=== PATIENT | female | born 1990 | race Caucasian/White ===

== ENCOUNTER 2019-03-05 13:32 | Emergency (ER) | payer MEDICAID, SELFPAY ==
[2019-03-05 13:33] VITALS: BP 100/67; PULSE 85; RESP 16; TEMP 36.5; O2SAT 98
[2019-03-05 14:45] LABS: Red Blood Cells-Urine 0 SEEN /hpf (0-5)
[2019-03-05 14:54] LABS: Color, Urine Yellow (Yellow); Glucose, Dipstick Normal (Normal); Ketone-Dipstick 5 mg/dl (Negative); Leukocyte Esterase-Dipstick 25 /ul (Negative); Nitrite-Dipstick Negative (Negative); Occult Blood-Urine Negative /ul (Negative); Protein-Dipstick Negative (Negative); Urine Bilirubin Dipstick Negative (Negative); Urine Clarity Sl. Cloudy (Clear); Urine Urobilinogen 1 mg/dl (Normal); Urine pH 6.5 (5.0 - 8.0)
[2019-03-05 14:58] LABS: Internal QC Validated? YES +Cl - CLEAR BKGD; Pregnancy, Urine Negative Negative
[2019-03-05] MEDS: Acetaminophen 325 MG Tablet 650 MG PO (15:03)
[2019-03-05 15:04] LABS: Bacteria 1+ /hpf (None Seen); Mucous, Urine 2+ /hpf (<or=2+); Squamous Epithelial Cells - UA 0-5 SEEN /hpf (5-10); White Blood Cells 0-5 SEEN /hpf (0-5)
--- NOTE | 2019-03-05 15:14 | US_ITS ---
STUDY: ULTRASOUND TRANSVAGINAL CLINICAL: Female, 28 years old. Pain TECHNIQUE: Transvaginal COMPARISON: None. FINDINGS: Normal uterine size measuring 9.7 x 6.1 x 3.7 cm in maximal craniocaudal dimension. There are no myometrial masses. Normal endometrial thickness measuring 3 mm. Given the images provided findings are suggestive of a probable septate uterus. 2 defined uterine horns are not definitively characterize.. There are no endometrial masses, and there is no fluid in the endometrial cavity. Normal uterine cervix. Normal right ovary, measuring 3.2 x 3.0 x 2.2 cm. There are multiple follicles without a dominant cyst. Normal left ovary, measuring 3.6 x 3.2 x 2.7 cm. There are multiple follicles without a dominant cyst. There is no free fluid in the pelvis. Polycystic ovary disease: No. There are prominent uterine vessels demonstrated. However Doppler was not placed over this finding. US/Transvaginal Non- IMPRESSION: Endometrium appears at least septate on this study. Endometrial thickening is otherwise normal. The uterus appears to have multiple small vessels or vascularity. No evidence of torsion. No free fluid. Electronically Signed: Francine Barrientos MD at 17:27 EST Tel , Service support ,
--- NOTE | 2019-03-05 15:28 | ED.DCSUM_ITS ---
History of Present Illness Chief Complaint: Abd Pain Informant: Patient Pain: Pelvic Pain Onset: Today Context: Sudden Onset Timing: Intermittent Quality: Cramping Location: Suprapubic Current Severity: Severe Maximum Severity: Severe Worsened by: Movement Sexually: Active, Single Partner Control: No control Narrative: Patient is a 28 year old female with history of Hepatitis C presenting with pelvic pain/cramping. She states that she woke up this morning and felt fine. When she woke up a second time she noticed the pain. She describes the pain as intense cramping. She denies any abnormal vaginal bleeding or discharge. She is not aware of any exposures to STI but does have a new partner and has not been using protection. She denies any associated fever, chills, nausea or urinary symptoms. She did have one episode of vomiting which she attributed to her pain. She denies any history of STI. She has no other complaints or concerns at this time. Past Medical History - Allergies and Home Meds Allergies/Adverse Reactions: Allergies amoxicillin Allergy (Verified 03/05/19 13:32) Hives Penicillins [PCN] Allergy (Verified 03/05/19 13:32) Hives Primary Care Physician: Care Physician,No Primary [Primary Care Provider] - Past Medical History: - - Hepatitis C Surgical History: no surgical history Smoking Status: Never smoker Review of Systems General: Denies: Chills, Fever, Sweats Eyes: Denies: Visual changes - bilaterally, Diplopia ENT: Denies: Rhinorrhea, Sore throat Cardiovascular: Denies: Chest pain, Palpitations Respiratory: Denies: Dyspnea, Cough, Dyspnea on exertion Gastrointestinal: Reports: Abdominal pain, Vomiting. Denies: Nausea, Diarrhea, Melena, Hematochezia Genitourinary: Denies: Dysuria, Hematuria, Frequency Musculoskeletal: Denies: Back pain, Extremity Pain Skin: Denies: Rash, Wounds Neurological: Denies: Headache, Weakness, Numbness Physical Exam Vital Signs/Narrative: Vital Signs Temp Pulse Resp BP Pulse Ox 03/05/19 13:33 97.7 F L 85 16 100/67 98 Inital Vital Signs reviewed: Yes General: Well nourished, Well developed Head: Normocephalic, Atraumatic Eyes: Perrl, EOMI ENT: Moist mucous membranes, No rhinorrhea Neck: Supple, Nontender Cardiovascular: Regular rate, Regular rhythm, No murmurs Respiratory: No distress, CTA bilaterally, Chest nontender Abdomen: Soft, Nondistended, Normal bowel sounds, Tender - suprapubic , Guarding. Negative for: Rebound tenderness : Speculum exam: Normal external genitalia, No vaginal lesions, No vaginal discharge, No blood in vault, No active bleeding, Yellow vaginal discharge, Thick vaginal discharge Bimanual exam: Os closed, Normal size uterus, Moderate cervical motion tenderness, Tender adnexa, left Back: Nontender, Normal Inspection. Negative for: CVA tenderness Extremities: Nontender, No edema Skin: Normal color, No rash Neurological: Alert, Oriented x3, Cranial nerves II-XII grossly intact, Normal Strength, Normal Sensation Psychological: Normal affect Diagnostic/Tx/Re-eval Clinical Impression(s) from Imaging Studies Transvaginal US 03/05/19 15:14 IMPRESSION: Endometrium appears at least septate on this study. Endometrial thickening is otherwise normal. The uterus appears to have multiple small vessels or vascularity. No evidence of torsion. No free fluid. Electronically Signed: Francine Barrientos MD at 17:27 EST Tel , Service support , Laboratory Data 03/05/19 03/05/19 03/05/19 14:38 14:38 14:38 WBC RBC Hgb Hct MCV MCH MCHC RDW Std Deviation RDW Coeff of Demetria Plt Count MPV Immature Gran % (Auto) Neut % (Auto) Lymph % (Auto) [place] % (Auto) Eos % (Auto) Baso % (Auto) Absolute Neuts (auto) Absolute Lymphs (auto) Nucleated RBC % Sodium Potassium Chloride Carbon Dioxide Anion Gap BUN Creatinine Estim Creat Clear Calc Est GFR (MDRD) Af Amer Est GFR (MDRD) Non-Af BUN/Creatinine Ratio Glucose Calcium Urine Color Yellow Urine Clarity Sl. Cloudy Urine pH 6.5 Ur Specific [place] 1.020 Urine Protein Negative Urine Glucose (UA) Normal Urine Ketones 5 H Urine Occult Blood Negative Urine Nitrite Negative Urine Bilirubin Negative Urine Urobilinogen 1 H Ur Leukocyte Esterase 25 H Urine RBC 0 SEEN Urine WBC 0-5 SEEN Ur Squamous Epith Cells 0-5 SEEN Urine Bacteria 1+ Urine Mucus 2+ Urine Test Negative Chlam trachomat DNA PCR Negative N.gonorrhoeae DNA (PCR) Negative 03/05/19 03/05/19 15:28 15:28 WBC 16.2 H RBC 4.36 Hgb 12.9 Hct 38.7 MCV 88.8 MCH 29.6 MCHC 33.3 RDW Std Deviation 41.1 RDW Coeff of Demetria 12.6 Plt Count 248 MPV 9.9 Immature Gran % (Auto) 0.300 Neut % (Auto) 85.8 H Lymph % (Auto) 6.9 L [place] % (Auto) 6.3 Eos % (Auto) 0.6 Baso % (Auto) 0.1 Absolute Neuts (auto) 13.9 H Absolute Lymphs (auto) 1.12 Nucleated RBC % 0 Sodium 140 Potassium 3.7 Chloride 109 H Carbon Dioxide 27.0 Anion Gap 4 L BUN 14 Creatinine 0.66 Estim Creat Clear Calc 100.25 Est GFR (MDRD) Af Amer 136 Est GFR (MDRD) Non-Af 113 BUN/Creatinine Ratio 21.1 H Glucose 125 H Calcium 8.8 Urine Color Urine Clarity Urine pH Ur Specific [place] Urine Protein Urine Glucose (UA) Urine Ketones Urine Occult Blood Urine Nitrite Urine Bilirubin Urine Urobilinogen Ur Leukocyte Esterase Urine RBC Urine WBC Ur Squamous Epith Cells Urine Bacteria Urine Mucus Urine Test Chlam trachomat DNA PCR N.gonorrhoeae DNA (PCR) - Medical Decision/Diagnostic Studies GC and Chlamydia cultures sent: Yes Patient is evaluated for cramping lower abdominal pain. She has suprapubic tenderness. On pelvic exam she has significant cervical motion tenderness and abnormal vaginal discharge. This is highly concerning for PID. US negative for tubo-ovarian abscess. Urine Gc/chlamydia negative but with high pretest suspicion I am worried about a false negative. Will be treated empirically for PID. Discuss case with SAMEERA Gonzales home performance consultant and she is agreeable with plan. Patient is counseled on signs and symptoms requiring return to the emergency room. Patient verbalizes agreement and understand this plan. Patient discharged home in stable and improved condition. ED Disposition - Plan for ED Patient: Disposition: Home or Assisted Living Diagnosis: PID (acute pelvic inflammatory disease) Instructions: Treating Pelvic Inflammatory Disease (PID) with Medications Prescriptions: Doxycycline Hyclate 100 mg PO BID #20 tab Prescription Printed Ibuprofen [Motrin] 600 mg PO Q6H PRN PRN #20 tab PRN Reason: Pain Or Fever Prescription Printed Referrals: Mi Crews MD [STAFF PHYSICIAN] - Additional Instructions: follow up with OBGYN on Tuesday or Tuesday next week. Call tomorrow to make an appointment. Return to the ED if you have worsening symptoms.
[2019-03-05] MEDS: Morphine 4 MG/ML Syringe IV (15:32)
[2019-03-05] MEDS: Ketorolac 15 MG/ML Vial IV (15:33)
[2019-03-05] MEDS: 0.9% Normal Saline 1,000 ML 999 ML IV (15:33)
[2019-03-05 15:36] LABS: Absolute Lymphocyte Count 1.12 X10^3/uL (0.83-4.51); Absolute Neutrophil Count 13.9 X10^3/uL (2.0-7.7); Basophil# 0.01 X10^3/uL; Basophil% 0.1 % (0-1); Eosinophils% 0.6 % (0-5); Hematocrit 38.7 % (37-47); Hemoglobin 12.9 g/dL (12.0-15.0); Lymphocyte # 1.12 X10^3/ul (4.0); Lymphocyte % 6.9 % (19-41); Mean Corp Hgb Conc 33.3 g/dL (32-36); Mean Corpuscular Hgb 29.6 pg (27.0-32.0); Mean Corpuscular Volume 88.8 fL (81-99); Mean Platelet Vol. 9.9 fl (6.2-12.0); Monocyte# 1.01 X10^3/uL; Monocyte% 6.3 % (0-10); NRBC Flagged by Analyzer 0 % (0-5); Neutrophil # 13.86 X10^3/uL (2.7-7.7); Neutrophil % 85.8 % (47-70); Platelet Count 248 K/mm3 (150-450); RBC Distribution Width CV 12.6 % (11.6-14.6); RBC Distribution Width SD 41.1 fl (35.1-43.9); Red Blood Count 4.36 M/mm3 (4.2-5.4); White Blood Count 16.2 K/mm3 (4.4-11.0)
[2019-03-05 15:49] LABS: Anion Gap 4 (5-15); BUN 14 mg/dL (7-18); BUN/Creat Ratio 21.1 RATIO (10-20); Calcium,Total 8.8 mg/dL (8.5-10.1); Chloride 109 mmol/L (98-107); Creatinine, Serum 0.66 mg/dL (0.55-1.02); EST Glomerular Filtration Rate 113 mL/min (>60); Est Glom Filt Rate - Afr Amer 136 mL/min (>60); Estimated Creatinine Clearance 100.25 ml/min; Glucose 125 mg/dL (74-106); Potassium 3.7 mmol/L (3.5-5.1); Sodium Level 140 mmol/L (136-145)
[2019-03-05 17:10] LABS: Chlamydia Trachomatis by PCR Negative (Negative); Neisserai gonorrhoeae by PCR Negative (Negative); Probe Check PASS; Sample Adequacy Control PASS; Specimen Processing Control PASS
[2019-03-05] MEDS: Doxycycline 100 MG CAPSULE PO (18:42)
[2019-03-05] MEDS: Ceftriaxone 500 MG Vial 250 MG IM (18:43)
[2019-03-05 19:08] VITALS: RESP 18
== END 2019-03-05 19:09 | disposition home or self-care (01) ==
PROVIDERS: Emergency Provider Emergency Medicine
DX: R10.30 Lower abdominal pain, unspecified (principal); Z86.19 Personal history of other infectious and parasitic diseases
CPT/HCPCS: 76830; 80048; 81001; 81025; 85025; 87210; 87491; 87591; 96361; 96372; 96374; 96375; 99284; J7030; A4216

== ENCOUNTER 2020-08-21 11:20 | Day surgery (SDC) | payer MEDICAID, SELFPAY ==
[2020-08-21] VITALS (7 sets, daily range): BP systolic 95–116; BP diastolic 59–77; PULSE 79–143; RESP 16–18; TEMP 35.9–37.1; O2SAT 97–100; BMI 20.1
--- NOTE | 2020-08-21 | POC_PTH ---
PATIENT: CORTEZ FERRARI LOC: [facility] [place] U#:[id number] AGE/SX: 30/F ROOM: RE08/21/[address]: Dr. Fransico Gutierrez MD : 1990 BED: DIS: 08/21/2020 SPEC #: [id number] RECD: 08/21/20 15:21 STATUS: WILFREDO REQ #: [id number] GREGORY: 08/21/20 00:[address]: Fransico Gutierrez DEPT: SURGICAL PATHOLOGY RECD BY: Omar Feng ENTERED: 08/22/20 08:13 SP TYPE: PROD CONC OTHR DR: No Primary Care Phys Tissues: Product of conception, NOS Procedures: Surgery Specimen Level IV HEADER OPERATION: Suction dilation and curettage PRE-OP DIAGNOSIS: Incomplete TISSUE SUBMITTED: Products of conception MICROSCOPIC DIAGNOSIS Products of conception: [place], gestational endometrium, immature chorionic villi and tissue (products of conception). See comment. SJ:nena 08/25/2020 COMMENT A fragment of immature placental tissue is also noted with acute chorioamnionitis. Clinical correlation and appropriate follow up are necessary. MICROSCOPIC DESCRIPTION Slides are reviewed. GROSS DESCRIPTION Received in fixative is one container labeled with the patient's name and designated products of conception. The specimen consists of multiple pieces of hemorrhagic soft tissue mixed with blood clot that in aggregate measure 8 x 7 x 2 cm. A piece of soft tissue is also present in the container measuring 8 x 4.5 x 1 cm. tissue is not identified. Fire Management Officer tissue is submitted in three cassettes. / VIJAY:nena 08/22/20 TC:5 CPT: 83309
--- NOTE | 2020-08-21 11:34 | EKG12_ITS ---
Test Reason : VAGINAL BLEEDING Blood Pressure : / mmHG Vent. Rate : 111 BPM Atrial Rate : 111 BPM P-R Int : 150 ms QRS Dur : 082 ms QT Int : 340 ms P-R-T Axes : 074 045 062 degrees QTc Int : 462 ms Sinus tachycardia Cannot rule out Anterior infarct , age undetermined Abnormal ECG Confirmed by RAMA RIOS, ANA MARÍA ([id number]), news copy editor JUANCARLOS CHOUDHURY ([id number]) on 08/25/2020 2:29:29 PM Referred By: Confirmed By:ANA MARÍA ONTIVEROS MD
--- NOTE | 2020-08-21 11:34 | US_ITS ---
We are attempting to reach an attending provider to discuss findings. An addendum with communication details will be sent when the communication is complete. EXAM: US PELVIS TRANSABDOMINAL, COMPLETE : 1990 CLINICAL INDICATION: Vaginal Bleeding -- S/P Elective AB 1 month ago TECHNIQUE: Transabdominal pelvic ultrasound was performed with grayscale and color Doppler imaging. This report was created using Meu[employer] report generation technology. COMPARISON: None. FINDINGS: UTERUS/CERVIX: The uterus measures 11.0 x 5.3 x 8.2 cm. Endometrium is thickened and heterogeneous measuring 3.5 cm. Anteverted. There is no uterine mass. RIGHT OVARY: The right ovary measures 1.5 x 3.5 x 2.6 cm. Blood flow is present in the right ovary. LEFT OVARY: The left ovary measures 2.2 x 2.1 x 2.8 cm. Blood flow is present in the left ovary. FREE FLUID: None. BLADDER: Unremarkable as visualized. Wall is normal thickness for degree of distention. OTHER FINDINGS: There is increased blood flow present possibly representing retained products of conception. US/Pelvic (Non ) IMPRESSION: Thickened heterogeneous endometrium with solid and cystic areas with increased blood flow possibly representing retained products of conception. at 1313 Reported and signed by: Kendall Hart MD Electronically Signed: Kendall Hart MD at 13:12 EDT Tel , Service support ,
--- NOTE | 2020-08-21 11:35 | EDS_ITS ---
HPI HPI - Female History of Present Illness Chief Complaint: Vag Bleeding Informant: patient Narrative Narrative: 30-year-old female presents for evaluation of heavy vaginal bleeding. Patient states that about 4 weeks ago she had an elective in [place]. She states that she has had some mild bleeding up until 3 days ago when it became significant. She notes large clots. Today the bleeding was heavier yet. She notes lightheadedness and near syncope symptoms. States that normally she is pale but this is worse. She was to see [facility] today but due to her symptoms came here. She notes some lower abdominal cramping but not any worse than normal. She denies any fevers. [facility] Medical History ADD (attention deficit disorder) Hepatitis C Home Medications dextroamphetamine-amphetamine [Adderall] 1 tab PO BID 08/21/20 [History Last Taken Unknown] Allergy/AdvReac Type Severity Reaction Status Date / Time amoxicillin Allergy Hives Verified 08/21/20 11:22 Penicillins [PCN] Allergy Hives Verified 08/21/20 11:22 no surgical history Social History (Updated 08/21/20 @ 11:[address] Cody Rodriguez, DO) Smoking Status: Current some day smoker substance use type: does not use ROS ROS ED Constitutional Constitutional ED: Reports other Details: Lightheaded and near syncopal ; Denies chills or weight loss Eyes Eyes: Denies change in vision or diplopia ENT ENT ED: Denies ear pain, rhinorrhea or sore throat Cardiovascular Cardiovascular: Denies chest pain, orthopnea, palpitations or racing heartbeat Respiratory/Chest Respiratory/Chest: Denies cough, dyspnea or orthopnea Gastrointestinal Gastrointestinal: Denies abdominal pain, diarrhea, nausea or vomiting Genitourinary Genitourinary ED: Reports vaginal bleeding and other; Denies dysuria, hematuria or urinary frequency Musculoskeletal Musculoskeletal: Denies arthralgias or myalgias Integumentary Denies abscess or rash Neurologic Neurologic: Denies headache(s) or weakness Psychiatric Psychiatric: Denies anxiety, depression, suicidal ideation or suicidal thoughts Endocrine Endocrinology: Denies polydipsia, polyphagia or polyuria Allergic/Immunologic Allergic/Immunologic ED: Denies mouth swelling, tongue swelling or urticaria EXAM Physical Exam Const Vital Signs: 08/21/20 11:22 08/21/20 12:10 08/21/20 13:10 Temperature 96.6 F L 98.7 F Temperature Source Temporal Oral Pulse Rate 120 H 97 Pulse Rate [Lying] 96 Pulse Rate [Sitting] 120 H Pulse Rate [Standing] 143 H Respiratory Rate 18 16 Blood Pressure 97/61 116/77 Blood Pressure [Lying] 95/59 L Blood Pressure [Sitting] 100/68 Blood Pressure [Standing] 101/71 Blood Pressure Mean 73 90 Blood Pressure Mean [Lying] 71 Blood Pressure Mean [Sitting] 78 Blood Pressure Mean [Standing] 81 Pulse Ox 97 100 Oxygen Delivery Method Room Air Room Air Positive well nourished and well developed General Appearance ED: well developed and pallor HEENT Reports normocephalic, head/scalp atraumatic and moist mucous membranes Eyes PERRL and EOMs intact bilaterally General Eye ED: Yes pale conjunctiva Neck no lymphadenopathy, supple and no JVD Resp normal respiratory effort and clear to auscultation bilaterally Cardio regular rate, regular rhythm and no murmurs GI normal to inspection, nondistended, normoactive bowel sounds and non-tender Palpation: soft Speculum Exam - Vagina: vaginal bleeding Back/Spine no CVA tenderness and normal ROM Extremity normal to inspection General Extremety ED: Negative for edema General Extremity: Negative for edema Neuro oriented x3 and CN's II-XII intact bilaterally Sensorium / Orientation: alert Motor Exam: strength 5/5 throughout Psych mental status grossly normal Mood & Affect: Negative for depressed or tearful Skin no rashes or lesions noted and no wounds General Skin Exam: pallor MDM MDM MDM Narrative Medical decision making narrative: Patient's orthostatics are positive from when she stands her heart rate is 143 difference her blood pressure. Hemoglobin 9.1. Pelvic ultrasound demonstrates an endometrial thickness of 3.5 cm. Patient is having significant vaginal bleeding while here in the department. I spoke with Dr. Cierra Gutierrez. We will plan on the patient going to the operating room for D&C. Lab Data Attestation: I reviewed the patient's lab results. Labs: Laboratory Results - last 24 hr 08/21/20 08/21/20 08/21/20 11:48 11:48 11:48 WBC 10.3 RBC 3.13 L Hgb 9.1 L Hct 28.0 L MCV 89.5 MCH 29.1 MCHC 32.5 RDW Std Deviation 41.0 RDW Coeff of Demetria 12.5 Plt Count 251 MPV 9.8 Immature Gran % (Auto) 0.400 Neut % (Auto) 83.0 H Lymph % (Auto) 8.7 L [place] % (Auto) 7.5 Eos % (Auto) 0.2 Baso % (Auto) 0.2 Absolute Neuts (auto) 8.5 H Absolute Lymphs (auto) 0.89 Nucleated RBC % 0 PT 14.4 INR 1.2 APTT 25.4 Sodium 135 L Potassium 3.4 L Chloride 103 Carbon Dioxide 26.0 Anion Gap 6 BUN 14 Creatinine 0.73 Estim Creat Clear Calc 89.57 Est GFR (MDRD) Af Amer 120 Est GFR (MDRD) Non-Af 99 BUN/Creatinine Ratio 19.1 Glucose 104 Calcium 8.4 L Total Bilirubin 0.60 AST 21 ALT 30 Alkaline Phosphatase 68 Total Protein 6.8 Albumin 3.2 Globulin 3.6 Albumin/Globulin Ratio 0.9 HCG, Quant 08/21/20 11:48 WBC RBC Hgb Hct MCV MCH MCHC RDW Std Deviation RDW Coeff of Demetria Plt Count MPV Immature Gran % (Auto) Neut % (Auto) Lymph % (Auto) [place] % (Auto) Eos % (Auto) Baso % (Auto) Absolute Neuts (auto) Absolute Lymphs (auto) Nucleated RBC % PT INR APTT Sodium Potassium Chloride Carbon Dioxide Anion Gap BUN Creatinine Estim Creat Clear Calc Est GFR (MDRD) Af Amer Est GFR (MDRD) Non-Af BUN/Creatinine Ratio Glucose Calcium Total Bilirubin AST ALT Alkaline Phosphatase Total Protein Albumin Globulin Albumin/Globulin Ratio HCG, Quant 632 H Radiography Diagnostic Testing: Radiology Impression Pelvis Ultrasound 08/21/20 11:34 IMPRESSION: Thickened heterogeneous endometrium with solid and cystic areas with increased blood flow possibly representing retained products of conception. at 1313 Reported and signed by: Kendall Hart MD Electronically Signed: Kendall Hart MD at 13:12 EDT Tel , Service support , EKG Initial EKG: Attestation: I personally reviewed and interpreted this EKG as follows: Comments: EKG shows a sinus tachycardia at a rate of 111. Critical Care Time Critical Care Time: Yes Critical care time (excluding procedures): 30-74 minutes (35 minutes), Discussing w/Patient &/or Family/Agriculture Sales Account Manager, Discussing w/Consultants, Arranging Admission or Transfer and Performing Direct Patient Care at Bedside Discharge Plan Dx/Rx/DC Orders Clinical Impression: ABLA (acute blood loss anemia), Hemorrhage due to retained products of conception Disposition Disposition: Acute Care Hospital [facility] Discharge Date/Time: 08/21/20 13:24
[2020-08-21 12:00] LABS: Absolute Lymphocyte Count 0.89 X10^3/uL (0.83-4.51); Absolute Neutrophil Count 8.5 X10^3/uL (2.0-7.7); Basophil# 0.02 X10^3/uL; Basophil% 0.2 % (0-1); Eosinophil# 0.02 X10^3/uL; Eosinophils% 0.2 % (0-5); Hemoglobin 9.1 g/dL (12.0-15.0); Lymphocyte # 0.89 X10^3/ul (0.83-4.51); Lymphocyte % 8.7 % (19-41); Mean Corp Hgb Conc 32.5 g/dL (32-36); Mean Corpuscular Hgb 29.1 pg (27.0-32.0); Mean Corpuscular Volume 89.5 fL (81-99); Mean Platelet Vol. 9.8 fl (6.2-12.0); Monocyte# 0.77 X10^3/uL; Monocyte% 7.5 % (0-10); NRBC Flagged by Analyzer 0 % (0-5); Neutrophil # 8.51 X10^3/uL (2.7-7.7); Platelet Count 251 K/mm3 (150-450); RBC Distribution Width CV 12.5 % (11.6-14.6); Red Blood Count 3.13 M/mm3 (4.2-5.4); White Blood Count 10.3 K/mm3 (4.4-11.0)
[2020-08-21 12:13] LABS: International Normalized Ratio 1.2; Partial Thromboplast Time 25.4 Seconds (24.1-36.2); Prothrombin Time (Protime)PT. 14.4 SECONDS (11.7-14.9)
[2020-08-21 12:19] LABS: ALB/GLOB Ratio 0.9 RATIO (0.9-2.4); AST(SGOT) 21 U/L (15-37); Alanine Aminotransfer ALT/SGPT 30 U/L (13-56); Albumin, Serum 3.2 g/dL (3.2-5.0); Alkaline Phosphatase 68 U/L (45-117); Anion Gap 6 (5-15); BUN 14 mg/dL (7-18); BUN/Creat Ratio 19.1 RATIO (10-20); Calcium,Total 8.4 mg/dL (8.5-10.1); Chloride 103 mmol/L (98-107); Creatinine, Serum 0.73 mg/dL (0.55-1.02); EST Glomerular Filtration Rate 99 mL/min (>60); Est Glom Filt Rate - Afr Amer 120 mL/min (>60); Estimated Creatinine Clearance 89.57 ml/min; Globulin 3.6 g/dL (2.2-4.2); Glucose 104 mg/dL (74-106); Potassium 3.4 mmol/L (3.5-5.1); Protein, Total 6.8 g/dL (6.4-8.2); Sodium Level 135 mmol/L (136-145)
[2020-08-21 12:43] LABS: hCG Titer Quant., Serum 632 mIU/mL (1-3)
[2020-08-21] MEDS: 0.9% Normal Saline 1,000 ML 999 ML IV (13:23)
[2020-08-21] MEDS: Doxycycline 100 MG CAPSULE 200 MG PO ×2 (13:42→16:23)
--- NOTE | 2020-08-21 13:43 | PCM.HP.OB ---
HPI - General HPI Narrative CORTEZ FERRARI, is a 30 F who presents with vaginal bleeding. She reports a medical about 3-4 weeks ago. Patient was scheduled to come in to the office today but came to the ED with heavy VB. [facility] Medical History (Updated 08/21/20 @ 13:[address] Fransico Gutierrez MD) ADD (attention deficit disorder) Hepatitis C Home Medications dextroamphetamine-amphetamine [Adderall] 1 tab PO BID 08/21/20 [History Last Taken Unknown] Allergy/AdvReac Type Severity Reaction Status Date / Time amoxicillin Allergy Hives Verified 08/21/20 11:22 Penicillins [PCN] Allergy Hives Verified 08/21/20 11:22 Social History (Updated 08/21/20 @ 11:[address] Cody Rodriguez DO) Smoking Status: Current some day smoker substance use type: does not use History Elective abortions Hx Para 2 Spontaneous abortions Hx # Term Pregnancies Ectopic pregnancies Hx # Pregnancies Multiple births # of living children Vital Signs Vital Signs Vital Signs: 08/21/20 11:22 08/21/20 12:10 08/21/20 13:10 Temperature 96.6 F L 98.7 F Temperature Source Temporal Oral Pulse Rate 120 H 97 Pulse Rate [Lying] 96 Pulse Rate [Sitting] 120 H Pulse Rate [Standing] 143 H Respiratory Rate 18 16 Blood Pressure 97/61 116/77 Blood Pressure [Lying] 95/59 L Blood Pressure [Sitting] 100/68 Blood Pressure [Standing] 101/71 Blood Pressure Mean 73 90 Blood Pressure Mean [Lying] 71 Blood Pressure Mean [Sitting] 78 Blood Pressure Mean [Standing] 81 Pulse Ox 97 100 Oxygen Delivery Method Room Air Room Air Physical Exam Const alert and oriented x3 HEENT normocephalic Chest inspection of chest normal Resp normal respiratory effort Cardio Rate: tachycardic GI soft to palpation, non-tender and non-distended external exam normal Narrative: defer exam to OR Extremity normal to inspection Skin no rashes or lesions noted Assessment & Plan (1) Incomplete : PLAN: Pelvic ultrasound shows likely retained POC's. Patient counseled on R/B/A and will proceed with suction D&C for incomplete . Informed consent signed & all questions answered. Pre-op & post-op doxycycline ordered.
--- NOTE | 2020-08-21 14:09 | PCM.OPRPT ---
Report of Operation Date of Procedure: 08/21/20 Pre-Operative Diagnosis: Incomplete Post-Operative Diagnosis: Same Surgery/Procedure Performed:: Dilation and curettage Description of Surgical Findings:: Products of conception wood machine carver: None Type of Anesthesia: General/Supplemental Specimen's removed: POC's Estimated Blood Loss (mL): 300ml Fluids Replaced: 1500ml Description of Procedure: Patient taken to OR where GETA was placed. She was placed in the dorsal lithotomy position, prepped & draped. Cervix was grasped with a tenaculum. Cervix was already dilated. Suction curettage performed gently with #8 curette. Then gentle sharp curettage performed with #3 curette. This process was repeated 4 additional times for good return of POC's. At end of procedure endometrial cavity had a gritty texture consistent with no retained POC's. All instruments removed from vaginal cavity. Sponge, lab & needle counts correct x2. Start time: 14:22 Stop time: 14:49 Complications None Admit VTE Documentation VTE Present on Admission: No VTE Pharm Prophylaxis ordered?: No
--- NOTE | 2020-08-21 15:04 | PCM.DC ---
Discharge Instructions Diet Discharge Diet: No restrictions Activity Discharge Activity: Return to Normal Activity (after 24 hours) May resume sexual activity in: 4 weeks Weight Bearing Status: Weight bearing as tolerated Dressing / Incision Call your doctor if you observe: Fever of 101 or Higher, Change in Color, Inability to urinate, Inability to have a bowel movement, Using more than one pad per hour, Shortness of breath, Dizziness, Fainting spells, Chest pain, Increased palpitations (irregular heartbeat) and Uncontrolled pain Follow Up Care Please Follow Up With: Fransico Gutierrez When: 1 week Test Results: Test results from this visit will be discussed in further detail at your follow-up appointment, if applicable. Discharge Plan Admission Primary Reason for Your Visit: Dilation and curettage Attending Provider: Fransico Gutierrez Primary Care Provider: Care Physician,Liliya Primary Instructions Patient Instructions: Anemia Discharge Orders/Prescriptions Prescriptions: Continued dextroamphetamine-amphetamine [Adderall] 20 mg tablet 1 tab PO BID RF: 0 Referrals / Follow Up: Care Physician,No Primary [Primary Care Provider] - Disposition Disposition (needs filled in before D/C Order can be placed): Home, self care
== END 2020-08-21 17:05 | disposition home or self-care (01) ==
LOC: ED 13:17 → SDC 13:31 → MS3 13:57 → AC 14:47
PROVIDERS: Emergency Provider Emergency Medicine; Visit Provider Obstetrics & Gynecology
PROC: (CPT 59812; principal; 2020-08-21 16:00)
DX: O07.4 Failed attempted termination of pregnancy without complication (principal); D62 Acute posthemorrhagic anemia; F17.200 Nicotine dependence, unspecified, uncomplicated; F98.8 Other specified behavioral and emotional disorders with onset usually occurring in childhood and adolescence; Z79.899 Other long term (current) drug therapy
CPT/HCPCS: 01965; 59812; 76856; 80053; 84702; 85025; 85610; 85730; 86850; 86900; 86901; 86920; 86922; 87426; 88305; 93005; 99285; J7030; A4216; J2405

== ENCOUNTER 2021-12-13 20:14 | Emergency (ER) | payer MEDICAID, SELFPAY ==
[2021-12-13 20:15] VITALS: BP 116/100; PULSE 81; RESP 17; TEMP 36.4; O2SAT 99; BMI 19.5
--- NOTE | 2021-12-13 20:28 | EKG12_ITS ---
Test Reason : CP Blood Pressure : / mmHG Vent. Rate : 064 BPM Atrial Rate : 064 BPM P-R Int : 164 ms QRS Dur : 088 ms QT Int : 396 ms P-R-T Axes : -25 -15 146 degrees QTc Int : 408 ms Normal sinus rhythm Low voltage QRS ST & T wave abnormality, consider lateral ischemia Abnormal ECG Confirmed by MERCEDES RIOS, OMAR ([id number]), scientific publications editor JUANCARLOS CHOUDHURY ([id number]) on 12/15/2021 9:20:37 AM Referred By: Confirmed By:ILSA LONG MD
--- NOTE | 2021-12-13 20:29 | EX.ED.DYSGE1 ---
HPI History of Present Illness Chief Complaint: Chest Pain Informant: patient Narrative Narrative: 31-year-old female presenting to the emergency department chief complaint of chest pain. Patient states that she got up around 1400 hrs. and had eggs and doherty. Around 1600 hrs. she was in the shower when she developed a tightness like sensation in her chest that went into her back. She notes that she continues to belch. No vomiting. She states that it is worse when she sits better when she leans forward temporarily and better when she stands. It is not made worse with movement or touch. She states her whole chest just feels tight. She states that she does not normally belch so this is abnormal for her to have this much gas. She tried having her significant other cracker back and it did crack but did not help the pain. PFSH PFSH Medical History ADD (attention deficit disorder) Hepatitis C Smoker Home Medications dextroamphetamine-amphetamine 20 mg tablet (Adderall) 1 tab PO BID 08/21/20 [History Last Taken Unknown] hydrocodone-acetaminophen 5-325mg 5mg-325mg 1 tab PO Q6H PRN PRN Pain 3 days #12 TABLETS 12/13/21 [Rx Last Taken Unknown] Allergy/AdvReac Type Severity Reaction Status Date / Time amoxicillin Allergy Hives Verified 12/13/21 20:18 Penicillins [PCN] Allergy Hives Verified 12/13/21 20:18 Surgical History no surgical history no surgical history Social History Smoking Status: Current some day smoker tobacco type: e-cigarettes substance use type: does not use ROS ROS ED Constitutional Constitutional ED: Denies chills, fever(s) or weight loss Eyes Eyes: Denies change in vision or diplopia ENT ENT ED: Denies ear pain, rhinorrhea or sore throat Cardiovascular Cardiovascular: Reports chest pain; Denies orthopnea, palpitations or racing heartbeat Respiratory/Chest Respiratory/Chest: Reports dyspnea; Denies cough or orthopnea Gastrointestinal Gastrointestinal: Denies abdominal pain, diarrhea, nausea or vomiting Genitourinary Genitourinary ED: Denies dysuria, hematuria or urinary frequency Musculoskeletal Musculoskeletal: Denies arthralgias or myalgias Integumentary Denies abscess or rash Neurologic Neurologic: Denies headache(s) or weakness Psychiatric Psychiatric: Denies anxiety, depression, suicidal ideation or suicidal thoughts Endocrine Endocrinology: Denies polydipsia, polyphagia or polyuria Allergic/Immunologic Allergic/Immunologic ED: Denies mouth swelling, tongue swelling or urticaria EXAM Physical Exam Const Vital Signs: 12/13/21 20:15 12/13/21 20:27 12/13/21 20:27 Temperature 97.5 F L Temperature Source Temporal Pulse Rate 81 Respiratory Rate 17 Respiratory Effort Normal Blood Pressure 116/100 H Blood Pressure Mean 105 Pulse Ox 99 Oxygen Delivery Method Room Air Room Air 12/13/21 21:22 Temperature Temperature Source Pulse Rate 61 Respiratory Rate 15 Respiratory Effort Blood Pressure 122/91 H Blood Pressure Mean 101 Pulse Ox 98 Oxygen Delivery Method Room Air Positive well nourished and well developed General Appearance ED: well developed HEENT Reports normocephalic, head/scalp atraumatic and moist mucous membranes Eyes PERRL and EOMs intact bilaterally Neck no lymphadenopathy, supple and no JVD Chest Wall inspection of chest normal and palpation of chest normal Resp normal respiratory effort and clear to auscultation bilaterally Cardio regular rate, regular rhythm and no murmurs GI normal to inspection, nondistended, normoactive bowel sounds and non-tender Palpation: soft Back/Spine no CVA tenderness and normal ROM Extremity normal to inspection General Extremety ED: Negative for edema General Extremity: Negative for edema Neuro oriented x3 and CN's II-XII intact bilaterally Sensorium / Orientation: alert Motor Exam: strength 5/5 throughout Psych mental status grossly normal Mood & Affect: anxious; Negative for depressed or tearful Skin no rashes or lesions noted and no wounds MDM MDM MDM Narrative Medical decision making narrative: CBC is normal. D-dimer is in the normal range at 0.31. Troponin is 20 and BMP is significant for a glucose of 111. My interpretation of the chest x-ray is no acute process. Patient received a dose of Toradol and a GI cocktail. Patient stated that the GI cocktail did not really help her. We will wait and see if the Toradol helps. I will write her for some pain medicine at home. Request primary care follow-up in the next couple days if still having symptoms or return if worsening Lab Data Attestation: I reviewed the patient's lab results. Labs: Laboratory Results - last 24 hr 12/13/21 12/13/21 12/13/21 20:35 20:35 20:35 WBC 9.4 RBC 4.55 Hgb 13.5 Hct 40.2 MCV 88.4 MCH 29.7 MCHC 33.6 RDW Std Deviation 40.6 RDW Coeff of Demetria 12.5 Plt Count 222 MPV 10.1 Immature Gran % (Auto) 0.200 Neut % (Auto) 80.1 H Lymph % (Auto) 14.1 L Wilson % (Auto) 5.0 Eos % (Auto) 0.3 Baso % (Auto) 0.3 Absolute Neuts (auto) 7.5 Absolute Lymphs (auto) 1.32 Nucleated RBC % 0 D-Dimer Quant (PE/DVT) 0.31 Sodium 137 Potassium 4.1 Chloride 108 H Carbon Dioxide 23.0 Anion Gap 6 BUN 18 Creatinine 0.87 Estim Creat Clear Calc 72.44 Est GFR (MDRD) Af Amer 98 Est GFR (MDRD) Non-Af 81 BUN/Creatinine Ratio 20.8 H Glucose 111 H Calcium 9.0 Troponin I High Sens 3 Serum , Qual 12/13/21 20:35 WBC RBC Hgb Hct MCV MCH MCHC RDW Std Deviation RDW Coeff of Demetria Plt Count MPV Immature Gran % (Auto) Neut % (Auto) Lymph % (Auto) Wilson % (Auto) Eos % (Auto) Baso % (Auto) Absolute Neuts (auto) Absolute Lymphs (auto) Nucleated RBC % D-Dimer Quant (PE/DVT) Sodium Potassium Chloride Carbon Dioxide Anion Gap BUN Creatinine Estim Creat Clear Calc Est GFR (MDRD) Af Amer Est GFR (MDRD) Non-Af BUN/Creatinine Ratio Glucose Calcium Troponin I High Sens Serum , Qual NEGATIVE EKG Initial EKG: Comments: Normal sinus rhythm ventricular rate of 64 bpm Discharge Plan Triage Chief Complaint: Chest Pain ED Provider: Cody Rodriguez Dx/Rx/DC Orders Clinical Impression: Chest pain Prescriptions: New hydrocodone-acetaminophen [hydrocodone-acetaminophen] 5-325 mg tablet 1 tab PO Q6H PRN PRN (Reason: Pain) 3 Days Qty: 12 0RF No Action dextroamphetamine-amphetamine [Adderall] 20 mg tablet 1 tab PO BID Label Comments: Take 1 Tablet By Oral Route 2 time(s) per day before breakfast Primary Care Provider: Care Physician,No Primary Referrals: Lillie Umana MD [Med Staff - Service Tech/Welder] - 3-5 Days if not improving Care Physician,No Primary [Primary Care Provider] - Disposition Disposition: Home, Self Care
[2021-12-13 20:41] LABS: Absolute Lymphocyte Count 1.32 X10^3/uL (0.83-4.51); Absolute Neutrophil Count 7.5 X10^3/uL (2.0-7.7); Basophil# 0.03 X10^3/uL; Basophil% 0.3 % (0-1); Eosinophil# 0.03 X10^3/uL; Eosinophils% 0.3 % (0-5); Hematocrit 40.2 % (37-47); Hemoglobin 13.5 g/dL (12.0-15.0); Lymphocyte # 1.32 X10^3/ul (0.83-4.51); Lymphocyte % 14.1 % (19-41); Mean Corp Hgb Conc 33.6 g/dL (32-36); Mean Corpuscular Hgb 29.7 pg (27.0-32.0); Mean Corpuscular Volume 88.4 fL (81-99); Mean Platelet Vol. 10.1 fl (6.2-12.0); Monocyte# 0.47 X10^3/uL; NRBC Flagged by Analyzer 0 % (0-5); Neutrophil # 7.52 X10^3/uL (2.7-7.7); Neutrophil % 80.1 % (47-70); Platelet Count 222 K/mm3 (150-450); RBC Distribution Width CV 12.5 % (11.6-14.6); RBC Distribution Width SD 40.6 fl (35.1-43.9); Red Blood Count 4.55 M/mm3 (4.2-5.4); White Blood Count 9.4 K/mm3 (4.4-11.0)
[2021-12-13 20:46] LABS: Internal QC Validated? YES +Cl - CLEAR BKGD
--- NOTE | 2021-12-13 20:46 | RAD_ITS ---
STUDY: X-RAY CHEST REASON FOR EXAM: Female, 31 years old. chest pain TECHNIQUE: Single AP portable view of the chest. COMPARISON: None. FINDINGS: The lungs are clear and expanded. There is no demonstrated pleural abnormality. Normal size heart. Normal mediastinum and nakul. Normal visualized pulmonary arteries. Normal visualized aortic arch and descending thoracic aorta. Normal visualized thoracic spine. Normal visualized ribs, clavicles, and shoulders. There is no demonstrated abnormality of the visualized soft tissue structures of the upper abdomen. RAD/Chest 1 View (Portable) IMPRESSION: Normal x-ray examination of the chest. Electronically Signed: Tristan Camarillo MD at 22:04 EDT ,
[2021-12-13 20:52] LABS: Pregnancy, Serum, hCG Quali. NEGATIVE Negative
[2021-12-13 20:58] LABS: D-Dimer Quantitative (DVT/PE) 0.31 FEU/ug/m (0.27-0.49)
[2021-12-13 21:02] LABS: Anion Gap 6 (5-15); BUN 18 mg/dL (7-18); BUN/Creat Ratio 20.8 RATIO (10-20); Chloride 108 mmol/L (98-107); Creatinine, Serum 0.87 mg/dL (0.55-1.02); EST Glomerular Filtration Rate 81 mL/min (>60); Est Glom Filt Rate - Afr Amer 98 mL/min (>60); Estimated Creatinine Clearance 72.44 ml/min; Glucose 111 mg/dL (74-106); Potassium 4.1 mmol/L (3.5-5.1); Sodium Level 137 mmol/L (136-145); Troponin-I HS (w/2H Reflex) 3 pg/mL (3.0-54.0)
[2021-12-13] MEDS: Ketorolac 30 MG/ML Syringe IV (21:13)
[2021-12-13] MEDS: Mag Hydrox/Al Hydrox/Simeth 30 ML UDC PO (21:14)
[2021-12-13 21:22] VITALS: BP 122/91; PULSE 61; RESP 15; O2SAT 98
[2021-12-13 21:47] VITALS: BP 123/92; PULSE 60; RESP 15; O2SAT 100
[2021-12-13 22:38] LABS: Reflex Troponin-HS? (from REC) Y
== END 2021-12-13 22:05 | disposition home or self-care (01) ==
PROVIDERS: Emergency Provider Emergency Medicine; Visit Provider Emergency Medicine
DX: R07.9 Chest pain, unspecified (principal); F17.290 Nicotine dependence, other tobacco product, uncomplicated
CPT/HCPCS: 71045; 80048; 84484; 84703; 85025; 85379; 93005; 96374; 99284; A4216

== ENCOUNTER 2022-07-23 16:46 | Emergency (ER) | payer MEDICAID, SELFPAY ==
[2022-07-23 16:47] VITALS: BP 108/76; PULSE 65; RESP 18; TEMP 36.9; O2SAT 98; BMI 22.1
--- NOTE | 2022-07-23 17:48 | EKG12_ITS ---
Test Reason : CP Blood Pressure : / mmHG Vent. Rate : 063 BPM Atrial Rate : 063 BPM P-R Int : 174 ms QRS Dur : 092 ms QT Int : 408 ms P-R-T Axes : -09 009 034 degrees QTc Int : 417 ms Normal sinus rhythm Normal ECG Confirmed by KAITLIN ALFREDO ([id number]), proposal editor JUANCARLOS CHOUDHURY ([id number]) on 07/27/2022 7:54:05 AM Referred By: Confirmed By:KAITLIN ALFREDO
--- NOTE | 2022-07-23 18:43 | RAD_ITS ---
EXAM: XR CHEST, 2 VIEWS CLINICAL INDICATION: chest pain TECHNIQUE: Frontal and lateral views of the chest. This report was created using Rover report generation technology. COMPARISON: 12.13.21 FINDINGS: LUNGS AND PLEURAL SPACES: Unremarkable. No consolidation or edema. No pneumothorax. No effusion. HEART: Unremarkable. Cardiac silhouette not enlarged. MEDIASTINUM: Central airways and mediastinal contour are unremarkable. BONES/JOINTS: Unremarkable. SOFT TISSUES: Unremarkable. RAD/Chest PA and Lateral IMPRESSION: No radiographic evidence of acute cardiopulmonary disease. Electronically Signed: Darron Walker MD at 18:57 EDT ,
--- NOTE | 2022-07-23 19:17 | EDS_ITS ---
HPI History of Present Illness Chief Complaint: Chest Pain Informant: patient Narrative Narrative: Patient is a 32-year-old female presenting with left-sided chest pain. She states it started her left breast and radiates around her back. It is worse when she sits and is still and better when she stands up. 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 Is been going on for about 4 days. Is also worse if she takes a deep breath. She spoke to either an urgent care or a nurse diesel stationary engineer line who thought she might have a blood clot and sent her to the ER for further evaluation. Patient denies any recent immobilization, swelling of her legs or any estrogen/hormone use. She states she does feel short of breath and it feels like my chest is not big enough for my lungs. Did take Midol and Aleve today with only temporary improvement of her pain. No other complaints at this time. Denies any history of pulmonary emboli or DVT. PFSH PFSH Medical History ADD (attention deficit disorder) Hepatitis C Smoker Home Medications dextroamphetamine-amphetamine 20 mg tablet (Adderall) 1 tab PO BID 08/21/20 [History Last Taken Unknown] hydrocodone-acetaminophen 5-325mg 5mg-325mg 1 tab PO Q6H PRN PRN Pain 3 days #12 TABLETS 12/13/21 [Rx Last Taken Unknown] Allergy/AdvReac Type Severity Reaction Status Date / Time amoxicillin Allergy Hives Verified 07/23/22 16:47 Penicillins [PCN] Allergy Hives Verified 07/23/22 16:47 Social History Smoking Status: Current some day smoker tobacco type: e-cigarettes substance use type: does not use ROS ROS ED Constitutional Constitutional ED: Denies chills or fever(s) Cardiovascular Cardiovascular: Reports as per HPI and chest pain Respiratory/Chest Respiratory/Chest: Reports dyspnea; Denies cough Gastrointestinal Gastrointestinal: Denies nausea or vomiting Musculoskeletal Musculoskeletal: Reports back pain; Denies arthralgias or myalgias Integumentary Denies rash Neurologic Neurologic: Denies headache(s) EXAM Physical Exam Const Vital Signs: 07/23/22 16:47 07/23/22 18:46 Temperature 98.4 F Temperature Source Temporal Pulse Rate 65 Respiratory Rate 18 Respiratory Pattern Normal Blood Pressure 108/76 Blood Pressure Mean 86 Pulse Ox 98 Oxygen Delivery Method Room Air Positive well nourished and well developed General Appearance ED: well developed and NAD HEENT Reports moist mucous membranes normocephalic and atraumatic Eyes PERRL and EOMs intact bilaterally Neck supple and no JVD Chest Wall inspection of chest normal Chest Narrative: Tenderness palpation of the left anterior ribs underneath the breast. No flail chest or crepitus appreciated. No overlying rash Resp normal respiratory effort and clear to auscultation bilaterally Cardio regular rate, regular rhythm and no murmurs GI normal to inspection, nondistended, normoactive bowel sounds and soft to palpation Back/Spine no CVA tenderness Extremity normal to inspection General Extremety ED: Negative for edema General Extremity: Negative for edema Neuro oriented x3 Sensorium / Orientation: awake Motor Exam: Negative for general weakness Psych mental status grossly normal Skin no rashes or lesions noted and no wounds MDM MDM MDM Narrative Medical decision making narrative: Patient evaluated for chest pain. Seems to be muscle skeletal. There is a pleuritic component to it she is low risk per Wells criteria and D-dimer is normal at 0.28. Do not think this is a pulmonary emboli. Pain is not consistent with ACS. No ischemic changes on EKG. High-sensitivity troponin is negative. Patient is mildly anemic with a hemoglobin 11.8 but I do not think this explains her pain. Is given a Lidoderm patch in the ER. Counseled on NSAID therapy as well as Lidoderm patches at home. Discussed that I think this is muscle skeletal. Is given a work note for today and tomorrow per her request. Counseled on return precautions. Discharged home in stable condition. Lab Data Attestation: I reviewed the patient's lab results. Labs: Laboratory Results - last 24 hr 07/23/22 07/23/22 07/23/22 18:20 18:20 18:20 WBC 8.0 RBC 4.07 L Hgb 11.8 L Hct 35.7 L MCV 87.7 MCH 29.0 MCHC 33.1 RDW Std Deviation 41.3 RDW Coeff of Demetria 12.8 Plt Count 236 MPV 10.8 Immature Gran % (Auto) 0.300 Neut % (Auto) 73.3 H Lymph % (Auto) 16.9 L Wood % (Auto) 8.6 Eos % (Auto) 0.6 Baso % (Auto) 0.3 Absolute Neuts (auto) 5.9 Absolute Lymphs (auto) 1.35 Nucleated RBC % 0 D-Dimer Quant (PE/DVT) 0.28 Sodium 138 Potassium 3.6 Chloride 109 H Carbon Dioxide 27.0 Anion Gap 2 L BUN 13 Creatinine 0.73 Estim Creat Clear Calc 88.31 Est GFR (MDRD) Af Amer 119 Est GFR (MDRD) Non-Af 98 BUN/Creatinine Ratio 17.8 Glucose 97 Calcium 8.9 Troponin I High Sens < 3 L Radiography Chest X-Ray - ED: 2 View, Read by ED Physician and Read by Radiologist Diagnostic Testing: Clinical Impression(s) from Imaging Studies Chest X-Ray 07/23/22 18:43 IMPRESSION: No radiographic evidence of acute cardiopulmonary disease. Electronically Signed: Darron Walker MD at 18:57 EDT Reading Location ID and State: [facility] / [place] , Service support , Rhythm Strip Rhythm Strip: Sinus Rhythm Rate: 63 Ectopy: None EKG Initial EKG: Attestation: I personally reviewed and interpreted this EKG as follows: Interpretation: Sinus Rhythm Comments: Normal sinus rhythm at a rate of 63 bpm Normal axis Normal intervals Normal ST segments Discharge Plan Triage Chief Complaint: Chest Pain Other Complaint: Shortness of Breath ED Provider: Giana Lemus Dx/Rx/DC Orders Clinical Impression: Acute chest wall pain Instructions: ED Chest Pain, Noncardiac Prescriptions: No Action dextroamphetamine-amphetamine [Adderall] 20 mg tablet 1 tab PO BID Label Comments: Take 1 Tablet By Oral Route 2 time(s) per day before breakfast hydrocodone-acetaminophen [hydrocodone-acetaminophen] 5-325 mg tablet 1 tab PO Q6H PRN PRN (Reason: Pain) 3 Days Qty: 12 0RF Stand Alone Forms: ED Work / School Excuse Primary Care Provider: Care Physician,No Primary Referrals: Dina Sheriff [Non-Staff] - As soon as possible Care Physician,No Primary [Primary Care Provider] - Activity Restrictions/Additional Instructions: The exact cause your symptoms is not clear however does not appear to be a more serious cause such as blood clot, pneumonia or other emergent process. I recommend alternate ibuprofen and Tylenol and using the Lidoderm patches. He can get 4% Lidoderm patches [id number]. Return if you have a progression or worsening your symptoms Disposition Disposition: Home, Self Care
[2022-07-23] MEDS: Lidocaine 5% Patch 1 PATCH TOPICAL (19:22)
[2022-07-23 19:23] LABS: Absolute Lymphocyte Count 1.35 X10^3/uL (0.83-4.51); Absolute Neutrophil Count 5.9 X10^3/uL (2.0-7.7); Basophil# 0.02 X10^3/uL; Basophil% 0.3 % (0-1); Eosinophil# 0.05 X10^3/uL; Eosinophils% 0.6 % (0-5); Hematocrit 35.7 % (37-47); Hemoglobin 11.8 g/dL (12.0-15.0); Lymphocyte # 1.35 X10^3/ul (0.83-4.51); Lymphocyte % 16.9 % (19-41); Mean Corp Hgb Conc 33.1 g/dL (32-36); Mean Corpuscular Volume 87.7 fL (81-99); Mean Platelet Vol. 10.8 fl (6.2-12.0); Monocyte# 0.69 X10^3/uL; Monocyte% 8.6 % (0-10); NRBC Flagged by Analyzer 0 % (0-5); Neutrophil # 5.87 X10^3/uL (2.7-7.7); Neutrophil % 73.3 % (47-70); Platelet Count 236 K/mm3 (150-450); RBC Distribution Width CV 12.8 % (11.6-14.6); RBC Distribution Width SD 41.3 fl (35.1-43.9); Red Blood Count 4.07 M/mm3 (4.2-5.4)
[2022-07-23 19:43] LABS: Anion Gap 2 (5-15); BUN 13 mg/dL (7-18); BUN/Creat Ratio 17.8 RATIO (10-20); Calcium,Total 8.9 mg/dL (8.5-10.1); Chloride 109 mmol/L (98-107); Creatinine, Serum 0.73 mg/dL (0.55-1.02); EST Glomerular Filtration Rate 98 mL/min (>60); Est Glom Filt Rate - Afr Amer 119 mL/min (>60); Estimated Creatinine Clearance 88.31 ml/min; Glucose 97 mg/dL (74-106); Potassium 3.6 mmol/L (3.5-5.1); Sodium Level 138 mmol/L (136-145); Troponin-I HS < 3 pg/mL (3.0-54.0)
[2022-07-23 20:14] LABS: D-Dimer Quantitative (DVT/PE) 0.28 FEU/ug/m (0.27-0.49)
== END 2022-07-23 21:28 | disposition home or self-care (01) ==
PROVIDERS: Emergency Provider Emergency Medicine; Visit Provider Emergency Medicine
DX: R07.89 Other chest pain (principal); F17.290 Nicotine dependence, other tobacco product, uncomplicated; R06.02 Shortness of breath
CPT/HCPCS: 71046; 80048; 84484; 85025; 85379; 93005; 99284; A4216

== ENCOUNTER 2023-05-31 22:52 | Emergency (ER) | payer MEDICAID, SELFPAY ==
[2023-05-31 22:53] VITALS: BP 114/92; PULSE 148; RESP 18; TEMP 35.5; O2SAT 99; BMI 22.1
--- NOTE | 2023-05-31 23:00 | EKG12_ITS ---
Test Reason : DYSRHYTHMIA Blood Pressure : / mmHG Vent. Rate : 118 BPM Atrial Rate : 118 BPM P-R Int : 168 ms QRS Dur : 094 ms QT Int : 326 ms P-R-T Axes : 074 006 049 degrees QTc Int : 456 ms Sinus tachycardia Biatrial enlargement RSR' or QR pattern in V1 suggests right ventricular conduction delay Cannot rule out Inferior infarct , age undetermined Abnormal ECG Confirmed by MAGGY RIOS, DARWIN ([id number]), editor house organ BRANDON GAONA ([id number]) on 06/01/2023 9:12:21 AM Referred By: CHUCHO Confirmed By:DARWIN WINTER MD
--- NOTE | 2023-05-31 23:37 | RAD_ITS ---
EXAM: XR Chest 1 View INDICATION: Female, 33 years old. Shortness of breath TECHNIQUE: Single AP view COMPARISON: 07/23/2022 FINDINGS: DEVICES: None LUNGS: No confluent air space opacity. No concerning pulmonary nodule. No pleural effusion or pneumothorax. MEDIASTINUM: Cardiac and mediastinal silhouettes are within normal limits. No central pulmonary vascular congestion. . SKELETAL STRUCTURES: No acute skeletal abnormality. UPPER ABDOMEN: Unremarkable RAD/Chest 1 View (Portable) IMPRESSION: No acute cardiopulmonary disease Electronically Signed: Omar Rose MD at 0:18 EST ,
--- OUTSIDE RECORDS SUMMARY | 2023-05-31 23:41 | XMS RPT_ITS | CCD ---
Author Name Unknown Address [address] [place] [address] Organization [facility] Care Team Providers Care Septic Cleaner Name Role Phone Unavailable Primary Care Provider Unavailluisa e ELIZABETH SKELTON Attending Unavailable NAVEEN MCGUIRE Referring Unavailable ELIZABETH SKELTON Referring Unavailable ELIZABETH SKELTON Referring Unavailable ELIZABETH SKELTON Referring Unavailable Allergies Allergy Classification Reported Allergen(s) Allergy Type Date of Onset Reaction(s) Facility (7 sources) Amoxicillin; Translations: [AMOXICILLIN] Drug Allergy 10-02-2013 [facility] (7 sources) Penicillins; Translations: [PENICILLINS] Drug Allergy 10-02-2013 [facility] Medications Current Medications Medication Drug Class(es) Dates Sig (Normalized) Sig (Original) clindamycin 300 mg oral capsule (1 source) Lincosamide Antibacterial Start: 12-12-2022 End: 12-19-2022 take 1 capsule by mouth three times daily clindamycin (CLEOCIN) 300 mg capsule Indications: Toothache Take 1 capsule by mouth three times daily for 7 days. 21 capsule 0 12/12/2022 12/19/2022 Active Completed/Discontinued Medications Medication Drug Class(es) Dates Sig (Normalized) Sig (Original) amphetamine aspartate 5 mg / amphetamine sulfate 5 mg / dextroamphetamine saccharate 5 mg / dextroamphetamine sulfate 5 mg oral tablet (2 sources) Central Nervous System Stimulant take 1 tablet by mouth twice daily dextroamphetamine -amphetamine (ADDERALL) 20 mg tablet Take 20 mg by mouth twice daily. 0 Active Problems Active Problems Problem Classification Problem Date Documented Da te Episodic/Chronic Disorders of teeth and jaw (1 source) Toothache; Translations: [Other specified disorders of teeth and supporting structures] 12-12-2022 Episodic Hepatitis (10 sources) Chronic active hepatitis; Translations: [Chronic active hepatitis, not elsewhere classified] Onset: 08-15-2015 Chronic Other skin disorders (1 source) Eruption; Translations: [Rash and other nonspecific skin eruption] Episodic Pancreatic disorders (not diabetes) (2 sources) Cyst of pancreas; Translations: [Cyst of pancreas] 05-25-2023 Episodic Substance-related disorders (5 sources) History of intravenous drug abuse; Translations: [H/O intravenous drug use in remission] Onset: 08-15-2015 08-15-2015 Chronic Past or Other Problems Problem Classification Problem Date Documented Date Episodic/Chronic Cancer of cervix (6 sources) Low grade squamous intraepithelial lesion on cervical Papanicolaou smear; Translations: [Low grade squamous intraepithelial lesion on cytologic smear of cervix (LGSIL)] Onset: 05-07-2020 05-07-2020 Episodic Deficiency and other anemia (6 sources) Iron deficiency anemia secondary to inadequate dietary iron intake; Translations: [Other iron deficiency anemias] Onset: 09-03-2020 09-03-2020 Episodic Malaise and fatigue (1 source) Other fatigue; Translations: [Lethargic infant] Onset: 06-10-2022 Episodic Other aftercare (1 source) Other watermaster (current) drug therapy; Translations: [On angiotensin receptor blockers (ARB)] Onset: 06-10-2022 Episodic Residual codes; unclassified (1 source) History of intravenous drug abuse; Translations: [Personal history of other specified conditions] Onset: 08-15-2015 08-15-2015 Episodic Unclassified (1 source) Fibroscan Onset: 04-27-2023 Results Test Name Value Interpretation Reference Range Facil ity Vital Signs Date Time Vital Sign Value Performing Clinician Faci lity 12-12-2022 10:05-0400 Body temperature 97.59 [degF] Segundo Moore APRN.CNP Work Phone: [facility] 12-12-2022 10:05-0400 Body weight 53.43 kg Segundo Moore APRN.CNP Work Phone: [facility] 12-12-2022 10:05-0400 Diastolic blood pressure 68 mm[Hg] Segundo Moore APRN.CNP Work Phone: [facility] 12-12-2022 10:05-0400 Heart rate 83 /min Segundo Oscar TRANSITION PROGRAM MANAGER.[employer] Work Phone: [facility] 12-12-2022 10:05-0400 Respiratory rate 18 /min Segundo Oscar TRANSITION PROGRAM MANAGER.[employer]NALY[employer] Work Phone: [facility] 12-12-2022 10:05-0400 SaO2% (BldA) [Mass fraction] 98 % Segundo Moore TRANSITION PROGRAM MANAGER.[employer]NALY[employer] Work Phone: [facility] 12-12-2022 10:05-0400 Systolic blood pressure 122 mm[Hg] Segundo Oscar TRANSITION PROGRAM MANAGER.[employer] ANALY[employer] Work Phone: [facility] 10-27-2021 15:46-0400 Body temperature 97.59 [degF] Celestino Pendlebury TRANSITION PROGRAM MANAGER.[employer] ANALY[employer] Work Phone: [facility] 10-27-2021 15:46-0400 Body weight 48.53 kg Celestino Pendcailinbury TRANSITION PROGRAM MANAGER.[employer]NALY[employer] Work Phone: [facility] 10-27-2021 15:46-0400 Diastolic blood pressure 62 mm[Hg] Celestino Pendcailinbury TRANSITION PROGRAM MANAGER.[employer]NALY[employer] Work Phone: [facility] 10-27-2021 15:46-0400 Heart rate 83 /min Celestino Pendcailinbury TRANSITION PROGRAM MANAGER.[employer]NALY[employer] Work Phone: [facility] 10-27-2021 15:46-0400 Respiratory rate 16 /min Celestino Pendcailinbury TRANSITION PROGRAM MANAGER.[employer]NALY[employer] Work Phone: [facility] 10-27-2021 15:46-0400 SaO2% (BldA) [Mass fraction] 99 % Celestino Luhcailinbury TRANSITION PROGRAM MANAGER.[employer]NALY[employer] Work Phone: [facility] 10-27-2021 15:46-0400 Systolic blood pressure 110 mm[Hg] Celestino Pendlebury TRANSITION PROGRAM MANAGER.[employer]NALY[employer] Work Phone: [facility] Encounters Encounter Date Encounter Type Care Provider Facility Start: 05-25-2023 End: 05-25-2023 Orders Only Elizabeth Skelton PA-C Work Phone: [facility] Procedures Date Procedure Procedure Detail Performing Clinician Start: 05-25-2023 3d rendering w/interp&postproc diff work station Elizabeth Skelton PA-C Work Phone: Start: 05-25-2023 Mri abdomen w/o & w/contrast material Elizabeth Skelton PA-C Work Phone: Plan of Treatment Date Care Activity Detail Author Start: 01-01-2026 Urine microalbumin profile [facility] Start: 04-29-2025 PAP TESTING PAP TESTING [facility] Start: 04-29-2025 Screening for malignant neoplasm of cervix Pap Testing [facility] Start: 04-11-2023 Depression Assessment Depression Assessment [facility] Start: 12-10-2022 Influenza vaccination [facility] Start: 04-11-2022 DEPRESSION ASSESSMENT DEPRESSION ASSESSMENT [facility] Start: 12-10-2021 Influenza vaccination INFLUENZA (#1) [facility] Start: 2021 HPV TESTING HPV TESTING [facility] Start: 2021 Screening for malignant neoplasm of cervix HPV Testing [facility] Start: 2010 HEPATITIS A (1 of 2 - Risk 2-dose series) HEPATITIS A (1 of 2 - Risk 2-dose series) [facility] Start: 2010 Hepatitis A Vaccine (1 of 2 - Risk 2-dose series) Hepatitis A Vaccine (1 of 2 - Risk 2-dose series) [facility] Start: 2010 HEPATITIS B (1 of 3 - Risk 3-dose series) HEPATITIS B (1 of 3 - Risk 3-dose series) [facility] Start: 2003 Adult depression screening assessment DEPRESSION SCREENING [facility] Start: 1997 PNEUMOCOCCAL (1 - PCV) PNEUMOCOCCAL (1 - PCV) [facility] Start: 1997 Pneumococcal vaccination Pneumococcal Vaccine (1 of 2 - PCV) [facility] Start: 1992 HEPATITIS A (1 of 2 - Risk 2-dose series) HEPATITIS A (1 of 2 - Risk 2-dose series) [facility] Start: 1991 COVID-19 VACCINE (#1) COVID-19 VACCINE (#1) [facility] Start: 1991 HEPATITIS B (1 of 3 - 3-dose series) HEPATITIS B (1 of 3 - 3-dose series) [facility] Start: 1991 Hepatitis B Vaccine (1 of 3 - 3-dose series) Hepatitis B Vaccine (1 of 3 - 3-dose series) [facility] End: 06-23-2024 MR Biliary ducts and Pancreatic duct WO and W contrast IV MRI PANC/ELIJAH WO/W IVCON Radiology Routine Pancreatic cyst 1 Occurrences starting 05/25/2023 until 06/23/2024 [facility] Work Phone: Immunizations Immunization Date Immunization Notes Care Provider Tamiko claudio 01-02-2016 tetanus toxoid, reduced diphtheria toxoid, and acellular pertussis vaccine, adsorbed Celestino Taylor TRANSITION PROGRAM MANAGER.[facility] Work Phone: [facility] Work Phone: Payers Date Payer Category Payer Medicaid [place] [employer] [place] [employer] [id number] 2022-Present [phone] [address] [place] [address] Medicaid [id number] 2022 Medicaid [id number] 2012 Medicaid [place] [employer] [id number] 2012-Present [phone] [address] [place] [address] Medicaid [id number] Social History Date Type Detail Facility Start: 10-27-2021 Tobacco smoking status IAIS Smokes tobacco daily [facility] Start: 10-27-2021 End: 12-12-2022 Tobacco use and exposure Smokeless tobacco non-user [facility] Start: 10-27-2021 Alcohol intake Current drinker of alcohol (finding) [facility] Start: 03-12-2019 History SDOH Alcohol Comment Socially [facility] Start: 04-29-2020 History SDOH Social Connections Phone 5 [facility] Start: 04-29-2020 History SDOH Social Connections Get Together 3 [facility] Start: 04-29-2020 History SDOH Social Connections Christian 1 [facility] Start: 04-29-2020 History SDOH Social Connections Membership 2 [facility] Start: 04-29-2020 History SDOH Social Connections Living 7 [facility] Start: 04-29-2020 History SDOH Physical Activity DPW 0 [facility] Start: 04-29-2020 Education 13 [facility] Start: 10-27-2021 End: 12-12-2022 Tobacco Comment vaping [facility] Start: 1990 Sex Assigned At Female [facility] Start: 10-17-2021 End: 10-27-2021 Exposure to SARS-CoV-2 (event) Not sure [facility] Start: 12-12-2022 Tobacco smoking status NHIS Ex-smoker [facility] History of tobacco use Current smoker [facility] History of tobacco use Cigarette Smoker [facility] Start: 12-12-2022 End: 03-28-2023 Alcohol intake Ex-drinker (finding) [facility] Start: 04-29-2020 End: 03-28-2023 History of Social function [facility] Work Phone: Start: 04-29-2020 End: 03-28-2023 Social connection and isolation panel [facility] Work Phone: Do you belong to any clubs or organizations such as sabianism groups, unions, fraternal or athletic groups, or school groups? No [facility] Work Phone: Are you now , , , , never or living with a partner? Never [facility] Work Phone: Do you feel stress - tense, restless, nervous, or anxious, or unable to sleep at night because your mind is troubled all the time - these days [OSQ] Not at all [facility] Work Phone: National Score (1-10 0), lower number is lower risk 92 [facility] Start: 09-18-2020 Gender identity Identifies as female gender (finding) [facility] Start: 09-18-2020 Sexual orientation Heterosexual (finding) [facility] Clinical Notes 12-26-2015 to 05-25-2023 Pauline Hudson RT(R) - 05/25/2023 10:00 AM ESTTelephone Encounter - Frost Rosa Maria Pauline - 05/24/2023 4:19 PM Segundo Sanchez APRN.CNP - 12/12/2022 10:17 AM EDT Note Date & Type Note Facility 05-25-2023 Note HNO ID: [id number] Author: PAULINE HUDSON RT(R) Service: ? Author Type: Technologist Type: Progress Notes Filed: 05/25/2023 10:03 Note Text: Radiology Service Progress Note DATE OF SERVICE: May 25, 2023 TIME: 10:03 AM PATIENT IDENTITY VERIFICATION COMPLETED USING TWO (2) STANDARD IDENTIFIERS: Name and Date of confirmed by patient verbally. FALL SCREENING: Has the patient had 2 falls in the last year or 1 fall with injury or currently using an Ambulatory Assistive Device (Walker, Cane, Wheelchair, Crutches, etc.)? No PATIENT GENDER DATA: Female. status: : No status: NO. PATIENT RELEVANT IMPLANT DATA REVIEWED: Yes PATIENT PRESENTS WITH AN IMPLANTABLE OR ATTACHED SAMPLE COLOR MAKER: No ALLERGIES: Reviewed and updated CONTRAST ALLERGY: NO. EXAM: MRI - CONTRAST TYPE: GROUP II PERIPHERAL IV DATA: Ambulatory: A peripheral IV was started in the Left antecubital site with a Angio cath: 22 gauge. RADIOLOGY DEPARTMENT: MR; Exam(s) Completed: Body: Pancreas/Biliary SIGNATURE: RT Gera(R) PATIENT NAME: Kylah Starkey DATE: May 25, 2023 TIME: 10:03 AM [facility] 05-25-2023 History of Presen t illness Narrative Radiology Service Progress Note DATE OF SERVICE: May 25, 2023 TIME: 10:03 AM PATIENT IDENTITY VERIFICATION COMPLETED USING TWO (2) STANDARD IDENTIFIERS: Name and Date of confirmed by patient verbally. FALL SCREENING: Has the patient had 2 falls in the last year or 1 fall with injury or currently using an Ambulatory Assistive Device (Walker, Cane, Wheelchair, Crutches, etc.)? No PATIENT GENDER DATA: Female. status: : No status: NO. PATIENT RELEVANT IMPLANT DATA REVIEWED: Yes PATIENT PRESENTS WITH AN IMPLANTABLE OR ATTACHED SAMPLE COLOR MAKER: No ALLERGIES: Reviewed and updated CONTRAST ALLERGY: NO. EXAM: MRI - CONTRAST TYPE: GROUP II PERIPHERAL IV DATA: Ambulatory: A peripheral IV was started in the Left antecubital site with a Angio cath: 22 gauge. RADIOLOGY DEPARTMENT: MR; Exam(s) Completed: Body: Pancreas/Biliary SIGNATURE: RT Gera(R) PATIENT NAME: Kylah Starkey DATE: May 25, 2023 TIME: 10:03 AM documented in this encounter [facility] 05-24-2023 Miscellaneous Notes Patient approved through medicaid for Hep C treatment. Approval letter scanned to chart. Discussed thoroughly with patient regarding partner being tested, control, PPI and alcohol usage. She will call when med is delivered to establish start date and follow up. Medication ships through [facility]. Requested Prescriptions Pending Prescriptions Disp Refills sofosbuvir-velpatasvir (EPCLUSA) 400-100 mg tablet 28 tablet 2 Sig: Take 1 tablet by mouth once daily. Pauline Frost [facility] documented in this encounter [facility] 04-14-2023 Note HNO ID: [id number] Author: KATHY SHRESTHA RDMS Service: ? Author Type: Data Processing Specialist Type: Progress Notes Filed: 04/14/2023 16:30 Note Text: Radiology Service Progress Note PATIENT NAME: Kylah Starkey DATE OF SERVICE: April 14, 2023 TIME: 4:30 PM PATIENT IDENTITY VERIFICATION COMPLETED USING TWO (2) IDENTIFIERS: Name and Date of confirmed by patient verbally. FALL SCREENING: Has the patient had 2 falls in the last year or 1 fall with injury or currently using an Ambulatory Assistive Device (Walker, Cane, Wheelchair, Crutches, etc.)? No PATIENT GENDER DATA: Female. status: : No status: NO. PATIENT RELEVANT IMPLANT DATA REVIEWED: Not Applicable RADIOLOGY DEPARTMENT: Ultrasound PERIPHERAL IV DATA: Not applicable SIGNED BY: Kathy Shrestha RDMS April 14, 2023 4:30 PM [facility] 03-28-2023 Note Received FibroScan o rder from Elizabeth Skelton PA-C. Called & spoke with pt who scheduled procedure for 04/06/23 at 9am. Pt aware NPO 3 hours prior. [facility] 03-28-2023 Note HNO ID: [id number] Author: Elizabeth Skelton PA-C Service: ? Author Type: Physician Steam Fitter Supervisor Maintenance Type: Progress Notes Filed: 03/28/2023 11:37 AM Note Text: CHIEF COMPLAINT: Patient presents with: Hepatitis C : Since - no treatment- labs in [facility] This consult was requested by Self for an opinion regarding Hepatitis C. My final recommendations will be communicated to the requesting health care provider by way of the shared medical record for internal providers or letter via the Mobile System [employer] Postal Service for external providers. HPI: Kylah Starkey is a 33 year old female who presents for Hepatitis C (Since - no treatment- labs in [facility] ). PMHx of depression, LGSIL, Hep C Patient tells me that she is feeling well today. Denies GI symptoms unless she eats something that doesn't agree with her. Avoids fast food. Notes that she was diagnosed with Hep C in her teens, thought to have had this from . Treatment naive. No smoking or alcohol use. IVDU x1, denies recent use. 1 professional tattoo. No hx of blood transfusion, . Record Review: [facility] / Outside records reviewed. PAST MEDICAL HISTORY Diagnosis Date 2007 During last Hepatitis C Papanicolaou smear of cervix with low grade squamous intraepithelial lesion (LGSIL) 05/07/2020 depression PAST SURGICAL HISTORY Procedure Laterality Date PAST SURGICAL HISTORY OF at age 13 liver biopsy SUCTION D AND C 08/21/2020 Incomplete Allergies: ALLERGIES Allergen Reactions Amoxicillin Hives Penicillins Hives Medications: No prescriptions on file. FAMILY HISTORY Problem Relation Age of Onset other (hepatitis c) Mother other (liver failure) Mother Heart Failure Father Colon Cancer No Family History Employer And Job Title: None on file Years Of Education Completed: 12 years Marital Status: Single with 2 children Social History Tobacco Use Smoking status: Former Types: Cigarettes Smokeless tobacco: Never Tobacco comments: vaping Vaping Use Vaping Use: Some days Substance Use Topics Alcohol use: Not Currently Comment: Socially Drug use: Yes Types: Marijuana Review of Systems: Review of Systems All other systems reviewed and are negative. Are you taking any blood thinners? No Physical Examination: BP 96/66 Pulse 73 Ht 5' 2 (1.58m) Wt 120 lb 12.8 oz (54.8kg) LMP 12/06/2022 BMI 22.09 kg/(m2). Physical Exam Constitutional: Appearance: Normal appearance. She is normal weight. HENT: Head: Normocephalic and atraumatic. Eyes: General: No scleral icterus. Extraocular Movements: Extraocular movements intact. Conjunctiva/sclera: Conjunctivae normal. Pupils: Pupils are equal, round, and reactive to light. Cardiovascular: Rate and Rhythm: Normal rate and regular rhythm. Pulses: Normal pulses. Heart sounds: Normal heart sounds. Pulmonary: Effort: Pulmonary effort is normal. Breath sounds: Normal breath sounds. Abdominal: General: Abdomen is flat. Bowel sounds are normal. Palpations: Abdomen is soft. Tenderness: There is no abdominal tenderness. Musculoskeletal: General: Normal range of motion. Cervical back: Normal range of motion and neck supple. Skin: General: Skin is warm and dry. Coloration: Skin is not jaundiced. Neurological: General: No focal deficit present. Mental Status: She is alert and oriented to person, place, and time. Psychiatric: Mood and Affect: Mood normal. Behavior: Behavior normal. Thought Content: Thought content normal. Judgment: Judgment normal. Assessment/Plan (B18.2) Chronic hepatitis C without hepatic coma (HCC) (primary encounter diagnosis) 1. Chronic hepatitis C without hepatic coma (HCC) -- Patient with chronic Hep C, genotype 1a. Looking to get treated. -- Will check full Hep C panel including repeat HFP -- RUQ US ordered -- Fibroscan ordered - HEPATITIS C ANTIBODY IA WITH CONFIRMATION; Future - HEPATIC FUNCTION PNL; Future - HEP B SURF AG SCRN; Future - HEP A AB IGM; Future - HIV 1 2 COMBO(AG/AB),WITH REFLEX TO DIFFERENTIATION; Future - US ABD RIGHT UPPER QUADRANT; Future - DDI VIBRATION CONTROLLED TRANSIENT ELASTOGRAPHY (VCTE) Follow up in office PRN. Recommended to please call office/go to ER if fever, chills, chest pain, SOB, diarrhea, nausea, emesis, worsening abdominal pain, dehydration occurs I spent a total of 20 minutes on the date of the service which included preparing to see the patient, [id number] patient care, completing clinical documentation, obtaining and/or reviewing separately obtained history, performing a medically appropriate examination, counseling and educating the patient/family/caregiver, and ordering medications, tests, or procedures. Elizabeth Skelton PA-C March 28, 2023 11:36 AM [facility] 12-12-2022 Note HNO ID: [id number] Author: Segundo Moore APRN.[employer]NALY[employer] Service: ? Author Type: Nurse Practitioner Type: Progress Notes Filed: 12/12/2022 10:19 AM Note Text: Subjective HPI HPI Kylah Starkey is a 32 year old female who presents today for CC of toothache. This started 2 days ago/worsening. Has tried otc medication for relief. Symptoms are worsened by nothing. Risk factors needs root canal on this tooth, has apt Tuesday. Denies possibility of being . .Patient presents with: Dental Problem: R upper back tooth, pain and pressure x 2 days PAST MEDICAL HISTORY Diagnosis Date Anemia 2007 During last Hepatitis C Papanicolaou smear of cervix with low grade squamous intraepithelial lesion (LGSIL) 05/07/2020 depression PAST SURGICAL HISTORY Procedure Laterality Date PAST SURGICAL HISTORY OF at age 13 liver biopsy SUCTION D AND C 08/21/2020 Incomplete ALLERGIES Amoxicillin and Penicillins MEDICATIONS clindamycin (CLEOCIN) 300 mg capsule Take 1 capsule by mouth three times daily for 7 days. Etonogestrel-Ethinyl Estradiol (NUVARING) 0.12-0.015 mg/24 hr vaginal ring Use 1 Each vaginally as directed. INSERT ONE(1) RING VAGINALLY AND LEAVE IN PLACE FOR THREE WEEKS, THEN REMOVE FOR 1 WEEK. (Patient not taking: Reported on 05/30/2021 ) iron sucrose (VENOFER) 200 mg iron/10 mL soln injection Inject 10 mL intravenously as directed for 4 doses. Please administer Venofer 200 mg IV per protocol x 4 dose(s). Total dose 800 mg. May be given every other day. OK for IV access. OK to use standard hypersensitivity orders per protocol. (Patient not taking: Reported on 12/02/2020 ) ferrous sulfate (IRON ORAL) Take 1 tablet by mouth. (Patient not taking: Reported on 12/12/2022) dextroamphetamine-amphetamine (ADDERALL) 20 mg tablet Take 20 mg by mouth twice daily. (Patient not taking: Reported on 12/12/2022) FAMILY HISTORY Problem Relation Age of Onset Heart Failure Father other (hepatitis c) Mother other (liver failure) Mother Social History Tobacco Use Smoking status: Former Types: Cigarettes Smokeless tobacco: Never Tobacco comments: vaping Vaping Use Vaping Use: Never used Substance Use Topics Alcohol use: Not Currently Comment: Socially Drug use: Yes Types: Marijuana ROS Objective Blood pressure 122/68, pulse 83, temperature 36.4 ?C (97.6 ?F), resp. rate 18, weight 53.4 kg (117 lb 12.8 oz), last menstrual period 12/06/2022, SpO2 98 %. Physical Exam Constitutional: General: She is not in acute distress. Appearance: She is not toxic-appearing or diaphoretic. HENT: Head: Normocephalic and atraumatic. Nose: Nose normal. Mouth/Throat: Lips: [place]. Mouth: Mucous membranes are moist. Dentition: Abnormal dentition. Dental tenderness present. Pulmonary: Effort: Pulmonary effort is normal. No accessory muscle usage or respiratory distress. Lymphadenopathy: Cervical: No cervical adenopathy. Right cervical: No superficial cervical adenopathy. Left cervical: No superficial cervical adenopathy. Neurological: Mental Status: She is alert and oriented to person, place, and time. ASSESSMENT/PLAN: 1. Toothache - ICD9: 525.9, ICD10: K08.89 Take medication as ordered See dentist val Follow up if signs of infection worsen - CLINDAMYCIN HCL 300 MG CAPSULE Segundo Moore APRN.[facility] 12-12-2022 History of Presen t illness Narrative Images from the original note were not included. Subjective HPI HPI Kylah Starkey is a 32 year old female who presents today for CC of toothache. This started 2 days ago/worsening. Has tried otc medication for relief. Symptoms are worsened by nothing. Risk factors needs root canal on this tooth, has apt Tuesday. Denies possibility of being . .Patient presents with: Dental Problem: R upper back tooth, pain and pressure x 2 days PAST MEDICAL HISTORY Diagnosis Date Anemia 2007 During last Hepatitis C Papanicolaou smear of cervix with low grade squamous intraepithelial lesion (LGSIL) 05/07/2020 depression PAST SURGICAL HISTORY Procedure Laterality Date PAST SURGICAL HISTORY OF at age 13 liver biopsy SUCTION D & C 08/21/2020 Incomplete ALLERGIES Amoxicillin and Penicillins MEDICATIONS clindamycin (CLEOCIN) 300 mg capsule Take 1 capsule by mouth three times daily for 7 days. Etonogestrel-Ethinyl Estradiol (NUVARING) 0.12-0.015 mg/24 hr vaginal ring Use 1 Each vaginally as directed. INSERT ONE(1) RING VAGINALLY AND LEAVE IN PLACE FOR THREE WEEKS, THEN REMOVE FOR 1 WEEK. (Patient not taking: Reported on 05/30/2021 ) iron sucrose (VENOFER) 200 mg iron/10 mL soln injection Inject 10 mL intravenously as directed for 4 doses. Please administer Venofer 200 mg IV per protocol x 4 dose(s). Total dose 800 mg. May be given every other day. OK for IV access. OK to use standard hypersensitivity orders per protocol. (Patient not taking: Reported on 12/02/2020 ) ferrous sulfate (IRON ORAL) Take 1 tablet by mouth. (Patient not taking: Reported on 12/12/2022) dextroamphetamine-amphetamine (ADDERALL) 20 mg tablet Take 20 mg by mouth twice daily. (Patient not taking: Reported on 12/12/2022) FAMILY HISTORY Problem Relation Age of Onset Heart Failure Father other (hepatitis c) Mother other (liver failure) Mother Social History Tobacco Use Smoking status: Former Types: Cigarettes Smokeless tobacco: Never Tobacco comments: vaping Vaping Use Vaping Use: Never used Substance Use Topics Alcohol use: Not Currently Comment: Socially Drug use: Yes Types: Marijuana ROS Objective Blood pressure 122/68, pulse 83, temperature 36.4 C (97.6 F), resp. rate 18, weight 53.4 kg (117 lb 12.8 oz), last menstrual period 12/06/2022, SpO2 98 %. Physical Exam Constitutional: General: She is not in acute distress. Appearance: She is not toxic-appearing or diaphoretic. HENT: Head: Normocephalic and atraumatic. Nose: Nose normal. Mouth/Throat: Lips: [place]. Mouth: Mucous membranes are moist. Dentition: Abnormal dentition. Dental tenderness present. Pulmonary: Effort: Pulmonary effort is normal. No accessory muscle usage or respiratory distress. Lymphadenopathy: Cervical: No cervical adenopathy. Right cervical: No superficial cervical adenopathy. Left cervical: No superficial cervical adenopathy. Neurological: Mental Status: She is alert and oriented to person, place, and time. ASSESSMENT/PLAN: 1. Toothache - ICD9: 525.9, ICD10: K08.89 Take medication as ordered See dentist val Follow up if signs of infection worsen - CLINDAMYCIN HCL 300 MG CAPSULE Segundo Moore APRN.[employer] documented in this encounter [facility] 10-27-2021 History of Presen t illness Narrative Images from the original note were not included. Subjective HPI Nontoxic-appearing female presents urgent care chief complaint intermittent rash. Duration of symptoms 6 months. Associated symptoms pruritic intermittent rash. Patient presents today for evaluation. States rash has comes and goes. Denies any pain. Has used lotions and antibiotic cream this does not help. Denies rash previously to this. Denies any environmental lifestyle changes. No recent medication changes antibiotic use. Denies any fever body aches chills nausea vomiting abdominal pain chest pain shortness of breath or change in bowel or bladder habits. Denies chance of is not breast-feeding. Past medical history prescription medication use and allergies reviewed. .Patient presents with: Rash: (LT) side intermittent x6 mths, denied pain PAST MEDICAL HISTORY Diagnosis Date Anemia 2007 During last Hepatitis C Papanicolaou smear of cervix with low grade squamous intraepithelial lesion (LGSIL) 05/07/2020 depression PAST SURGICAL HISTORY Procedure Laterality Date PAST SURGICAL HISTORY OF at age 13 liver biopsy SUCTION D & C 08/21/2020 Incomplete ALLERGIES Amoxicillin and Penicillins MEDICATIONS ferrous sulfate (IRON ORAL) Take 1 tablet by mouth. dextroamphetamine-amphetamine (ADDERALL) 20 mg tablet Take 20 mg by mouth twice daily. Etonogestrel-Ethinyl Estradiol (NUVARING) 0.12-0.015 mg/24 hr vaginal ring Use 1 Each vaginally as directed. INSERT ONE(1) RING VAGINALLY AND LEAVE IN PLACE FOR THREE WEEKS, THEN REMOVE FOR 1 WEEK. iron sucrose (VENOFER) 200 mg iron/10 mL soln injection Inject 10 mL intravenously as directed for 4 doses. Please administer Venofer 200 mg IV per protocol x 4 dose(s). Total dose 800 mg. May be given every other day. OK for IV access. OK to use standard hypersensitivity orders per protocol. FAMILY HISTORY Problem Relation Age of Onset Heart Failure Father other (hepatitis c) Mother other (liver failure) Mother Social History Tobacco Use Smoking status: Current Every Day Smoker Smokeless tobacco: Never Used Tobacco comment: vaping Vaping Use Vaping Use: Never used Substance Use Topics Alcohol use: Yes Comment: Socially Drug use: Yes Types: Marijuana BP 110/62 Pulse 83 Temp 36.4 C (97.6 F) Resp 16 Wt 48.5 kg (107 lb) LMP 10/09/2021 SpO2 99% BMI 20.22 kg/m Review of Systems Constitutional: Negative for chills, fever and malaise/fatigue. HENT: Negative for congestion, ear discharge, ear pain, sinus pain and sore throat. Eyes: Negative for blurred vision, pain, discharge and redness. Respiratory: Negative for cough, hemoptysis, sputum production, shortness of breath, wheezing and stridor. Cardiovascular: Negative for chest pain. Gastrointestinal: Negative for abdominal pain, diarrhea, nausea and vomiting. Musculoskeletal: Negative for myalgias. Skin: Positive for itching and rash. Neurological: Negative for dizziness and headaches. Objective Physical Exam Constitutional: General: She is not in acute distress. Appearance: She is not diaphoretic. HENT: Head: Normocephalic. Mouth/Throat: Mouth: Mucous membranes are moist. Pharynx: Oropharynx is clear. No oropharyngeal exudate or posterior oropharyngeal erythema. Eyes: Conjunctiva/sclera: Conjunctivae normal. Pupils: Pupils are equal, round, and reactive to light. Cardiovascular: Rate and Rhythm: Normal rate and regular rhythm. Heart sounds: Normal heart sounds. Pulmonary: Effort: Pulmonary effort is normal. No tachypnea, accessory muscle usage or respiratory distress. Breath sounds: Normal breath sounds. No stridor. Abdominal: Palpations: Abdomen is soft. Tenderness: There is no abdominal tenderness. Musculoskeletal: Cervical back: Normal range of motion and neck supple. No rigidity or tenderness. Lymphadenopathy: Cervical: No cervical adenopathy. Skin: General: Skin is warm and dry. Comments: Macular papular rash noted on left oblique area. Rash is blanching. No remote redness. No evidence of bacterial infection. No adenopathy. Neurological: Mental Status: She is alert and oriented to person, place, and time. ASSESSMENT/PLAN: 1. Chronic active hepatitis (HCC) - ICD9: 571.49, ICD10: K73.2 (primary diagnosis) - CONSULT TO GASTROENTEROLOGY 2. Rash - ICD9: 782.1, ICD10: R21 Patient diagnosed with rash. Will use triamcinolone cream. Do not use with dressings do not use greater then 7 days. Not on areas of thin skin. We will follow-up with dermatology if symptoms are not improving. Referral to gastroenterology placed due to hepatitis C. Patient was educated on supportive therapies. Patient will follow up with primary care provider as needed. Patient was instructed to immediately proceed to emergency room for any new, worsening, or symptoms lasting longer than anticipated. The patient's clinical presentation is otherwise unremarkable at this time. Based on exam and clinical finding, the patient is stable for discharge. Plan of care was discussed with patient. Patient verbalizes understanding and agrees to plan of care. This note was generated using [employer] software. It may contain errors in wording, punctuation, or spelling. Celestino Taylor APRN.[employer] documented in this encounter [facility] documented as of this encounter (statuses as of 10/27/2021) [facility] History of Past illness Narrative* Problem Noted Date Diagnosed Date Resolved Date Supervision of high risk pre gnancy in third trimester 12/26/2015 01/14/2016 Supervision of high risk pre gnancy in third trimester 11/28/2015 04/29/2020 Overview: Girl on us- Supervision of high risk pre gnancy in first trimester 08/15/2015 01/14/2016 H/O delivery, currently 08/15/2015 04/29/2020 Overview: 08/14/14: Delivered by Dr. Gonzalez at 35 wks with SROM. 6lb 7oz. Nazia Waterman MD documented as of this encounter (statuses as of 12/12/2022) [facility] History of Past illness Narrative* Problem Noted Date Diagnosed Date Resolved Date Supervision of high risk pre gnancy in third trimester 12/26/2015 01/14/2016 Supervision of high risk pre gnancy in third trimester 11/28/2015 04/29/2020 Overview: Girl on us- Supervision of high risk pre gnancy in first trimester 08/15/2015 01/14/2016 H/O delivery, currently 08/15/2015 04/29/2020 Overview: 08/14/14: Delivered by Dr. Gonzalez at 35 wks with SROM. 6lb 7oz. Nazia Waterman MD documented as of this encounter (statuses as of 05/23/2023) [facility] History of Past illness Narrative* Problem Noted Date Diagnosed Date Resolved Date Supervision of high risk pre gnancy in third trimester 12/26/2015 01/14/2016 Supervision of high risk pre gnancy in third trimester 11/28/2015 04/29/2020 Overview: Girl on us- Supervision of high risk pre gnancy in first trimester 08/15/2015 01/14/2016 H/O delivery, currently 08/15/2015 04/29/2020 Overview: 08/14/14: Delivered by Dr. Gonzalez at 35 wks with SROM. 6lb 7oz. Nazia Waterman MD documented as of this encounter (statuses as of 05/25/2023) [facility] History of Past illness Narrative* Problem Noted Date Diagnosed Date Resolved Date Supervision of high risk pre gnancy in third trimester 12/26/2015 01/14/2016 Supervision of high risk pre gnancy in third trimester 11/28/2015 04/29/2020 Overview: Girl on us- Supervision of high risk pre gnancy in first trimester 08/15/2015 01/14/2016 H/O delivery, currently 08/15/2015 04/29/2020 Overview: 08/14/14: Delivered by Dr. Gonzalez at 35 wks with SROM. 6lb 7oz. Nazia Waterman MD documented as of this encounter (statuses as of 05/25/2023) [facility] History of Past illness Narrative* Problem Noted Date Diagnosed Date Resolved Date Supervision of high risk pre gnancy in third trimester 12/26/2015 01/14/2016 Supervision of high risk pre gnancy in third trimester 11/28/2015 04/29/2020 Overview: Girl on us- Supervision of high risk pre gnancy in first trimester 08/15/2015 01/14/2016 H/O delivery, currently 08/15/2015 04/29/2020 Overview: 08/14/14: Delivered by Dr. Gonzalez at 35 wks with SROM. 6lb 7oz. Nazia Waterman MD documented as of this encounter (statuses as of 05/26/2023) [facility] Diagnosis Chronic active hepatitis (HCC)- Primary Other chronic hepatitis Rash Rash and other nonspecific skin eruption [facility] Diagnosis Toothache- Primary Unspecified disorder of the teeth and supporting structures [facility] Diagnosis Chronic hepatitis C without hepatic coma (HCC)- Primary Chronic hepatitis C without mention of hepatic coma [facility] Diagnosis Pancreatic cyst- Primary Cyst and pseudocyst of pancreas [facility] Diagnosis Chronic hepatitis C without hepatic coma (HCC) Chronic hepatitis C without mention of hepatic coma Pancreatic cyst Cyst and pseudocyst of pancreas documented in this encounter [facility] Summary Purpose Family History No Family History Records FoundNo Family History Records FoundNo Family History Records FoundNo Family History Records Found Advance Directives No Advanced Directives Records FoundNo Advanced Directives Records FoundNo Advanced Directives Records FoundNo Advanced Directives Records Found Reason for Referral Specialty Diagnoses / Procedures Referred By Sylvia hall Referred To Contact Gastroenterology Diagnoses Chronic active hepatitis (HCC) Procedures CONSULT TO GASTROENTEROLOGY OFFICE/OUTPATIENT [facility] HIGH MDM 60-74 MINUTES Celestino Taylor APRN.[employer] [address] [place] [address] Referral ID Status Reason Start Date Expiration Date Visits Requested Visits Authorized [id number] Authorized PCP Requested Referral 10/27/2021 10/27/2022 1 1 Specialty Diagnoses / Procedures Referred By Contac t Referred To Contact [facility] IMAGING Diagnoses Pancreatic cyst Procedures MRI 3D POST PROCESSING 3D RENDERING W/INTERP&POSTPROC DIFF WORK STATION Elizabeth Skelton PA-C [address] [address] Mr Imaging [facility] Referral ID Status Reason Start Date Expiration Date Visits Requested Visits Authorized [id number] Pending Review Auto-Generat ed Referral 05/25/2023 06/23/2024 1 1 Specialty Diagnoses / Procedures Referred By Carinac t Referred To Contact MR IMAGING Diagnoses Pancreatic cyst Procedures MRI PANC/ELIJAH WO/W IVCON MRI ABDOMEN W/O & W/CONTRAST MATERIAL Elizabeth Skelton PA-C [address] [facility] [place] [address] Mr Imaging [place] [address] Referral ID Status Reason Start Date Expiration Date Visits Requested Visits Authorized [id number] Pending Review Auto-Generat ed Referral 05/25/2023 06/23/2024 1 1 Specialty Diagnoses / Procedures Referred By Carinac t Referred To Contact MR IMAGING Diagnoses Chronic hepatitis C without hepatic coma (HCC) Pancreatic cyst Procedures MRI 3D POST PROCESSING 3D RENDERING W/INTERP&POSTPROC DIFF WORK STATION Elizabeth Skelton PA-C [address] [facility] [place] [address] Mr Imaging [place] [address] Referral ID Status Reason Start Date Expiration Date V isits Requested Visits Authorized [id number] Closed Auto-Generate d Referral 04/18/2023 05/17/2024 1 1 Specialty Diagnoses / Procedures Referred By Contac t Referred To Contact MR IMAGING Diagnoses Chronic hepatitis C without hepatic coma (HCC) Pancreatic cyst Procedures MRI PANC/ELIJAH WO/W IVCON MRI ABDOMEN W/O & W/CONTRAST MATERIAL Elizabeth Skelton PA-C [address] [facility] [address] [place] [address] Referral ID Status Reason Start Date Expiration Date V isits Requested Visits Authorized [id number] Closed Auto-Generate d Referral 05/03/2023 06/02/2023 1 1 Additional Source Comments INFORMATION SOURCE (unrecogn ized section and content) DATE CREATED AUTHOR AUTHOR'S ORGANIZ ATION 07/03/2020 [facility] DATE CREATED AUTHOR AUTHOR'S ORGANIZ ATION 04/29/2023 [facility] DATE CREATED AUTHOR AUTHOR'S ORGANIZ ATION 05/26/2023 [facility] Source Comments (unrecognize d section and content) In the event this informatio n is protected by the Federal Confidentiality of Alcohol and Drug Abuse Patient Records regulations: The Federal rules restrict any use of the information to criminally investigate or prosecute any alcohol or drug abuse patient.[facility] the event this information is protected by the Federal Confidentiality of Alcohol and Drug Abuse Patient Records regulations: The Federal rules restrict any use of the information to criminally investigate or prosecute any alcohol or drug abuse patient.[facility] the event this information is protected by the Federal Confidentiality of Alcohol and Drug Abuse Patient Records regulations: The Federal rules restrict any use of the information to criminally investigate or prosecute any alcohol or drug abuse patient.[facility] the event this information is protected by the Federal Confidentiality of Alcohol and Drug Abuse Patient Records regulations: The Federal rules restrict any use of the information to criminally investigate or prosecute any alcohol or drug abuse patient.[facility] the event this information is protected by the Federal Confidentiality of Alcohol and Drug Abuse Patient Records regulations: The Federal rules restrict any use of the information to criminally investigate or prosecute any alcohol or drug abuse patient.[facility] the event this information is protected by the Federal Confidentiality of Alcohol and Drug Abuse Patient Records regulations: The Federal rules restrict any use of the information to criminally investigate or prosecute any alcohol or drug abuse patient.[facility] Reason for Visit (unrecogniz ed section and content) Reason Comments Dental Problem R upper back tooth, pain and pressure x 2 days Reason Onset Date Comments Refill Request 05/24/2023 Specialty Diagnoses / Procedures Referred By Contac t Referred To Contact MR IMAGING Diagnoses Chronic hepatitis C without hepatic coma (HCC) Pancreatic cyst Procedures MRI PANC/ELIJAH WO/W IVCON MRI ABDOMEN W/O & W/CONTRAST MATERIAL Elizabeth Skelton PA-C [address] [facility] [address] [place] [address] Referral ID Status Reason Start Date Expiration Date V isits Requested Visits Authorized [id number] Closed Auto-Generate d Referral 05/03/2023 06/02/2023 1 1 FOR RECORDS PERTAINING TO PATIENTS WHO ARE OR HAVE BEEN ENROLLED IN A CHEMICAL DEPENDENCY/SUBSTANCEABUSE PROGRAM, SOME INFORMATION MAY BE OMITTED. This clinical summary was aggregated from multiple sources. Caution should be exercised in using it in the provision of clinical care. This summary normalizes information from multiple sources, and as a consequence, information in this document may materially change the coding, format and clinical context of patient data. In addition, data may be omitted in some cases. CLINICAL DECISIONS SHOULD BE BASED ON THE PRIMARY CLINICAL RECORDS. [facility] [employer] [facility]. provides no warranty or guarantee of the accuracy or completeness of information in this document.
[2023-05-31 23:44] VITALS: BP 128/76; PULSE 110; PULSE 111; RESP 19; TEMP 37.4; O2SAT 98
[2023-06-01] MEDS: 0.9% Normal Saline (1000mL) 1,000 ML 999 ML IV (00:01)
[2023-06-01 00:03] LABS: Anion Gap 6 (5-15); BUN 8 mg/dL (7-18); BUN/Creat Ratio 9.7 RATIO (10-20); Calcium,Total 8.7 mg/dL (8.5-10.1); Chloride 105 mmol/L (98-107); Creatinine, Serum 0.82 mg/dL (0.55-1.02); EST Glomerular Filtration Rate 86 mL/min (>60); Est Glom Filt Rate - Afr Amer 104 mL/min (>60); Glucose 146 mg/dL (74-106); Magnesium 1.6 mg/dL (1.6-2.6); Potassium 3.1 mmol/L (3.5-5.1); Sodium Level 136 mmol/L (136-145)
[2023-06-01 00:26] LABS: Absolute Lymphocyte Count 0.27 X10^3/uL (0.83-4.51); Absolute Neutrophil Count 6.7 X10^3/uL (2.0-7.7); Basophil# 0.01 X10^3/uL; Basophil% 0.1 % (0-1); Hematocrit 38.6 % (37-47); Hemoglobin 12.8 g/dL (12.0-15.0); Lymphocyte # 0.27 X10^3/ul (0.83-4.51); Lymphocyte % 3.4 % (19-41); Mean Corp Hgb Conc 33.2 g/dL (32-36); Mean Corpuscular Hgb 28.5 pg (27.0-32.0); Mean Platelet Vol. 11.2 fl (6.2-12.0); Monocyte# 0.95 X10^3/uL; NRBC Flagged by Analyzer 0 % (0-5); Neutrophil # 6.67 X10^3/uL (2.7-7.7); POSITIVE DIFFERENTIAL YES; Platelet Count 129 K/mm3 (150-450); RBC Distribution Width CV 12.8 % (11.6-14.6); RBC Distribution Width SD 39.9 fl (35.1-43.9); Red Blood Count 4.49 M/mm3 (4.2-5.4); White Blood Count 7.9 K/mm3 (4.4-11.0)
[2023-06-01] MEDS: Ondansetron 4 MG/2 ML Vial IV (00:47)
[2023-06-01] MEDS: Albuterol Sulfate 8 gm Inhaler (60 puffs) 4 PUFF INHALATION (00:57)
--- NOTE | 2023-06-01 01:13 | EX.ED.DYSGE1 ---
HPI History of Present Illness Chief Complaint: Cold Sx Informant: patient Narrative Narrative: Patient is a 33-year-old female with past medical history of hepatitis C. She states that she has 2 daughters and both have been sick with congestion cough nausea vomiting diarrhea. She states she began with symptoms on Tuesday. She states that she was online and became nervous/anxious that if she has the flu it could kill her and secondary to this she comes in for evaluation. PFSH PFSH Medical History ADD (attention deficit disorder) Hepatitis C Smoker Home Medications dextroamphetamine-amphetamine 20 mg tablet (Adderall) 1 tab PO BID 08/21/20 [History Last Taken Unknown] hydrocodone-acetaminophen 5-325mg 5mg-325mg 1 tab PO Q6H PRN PRN Pain 3 days #12 TABLETS 12/13/21 [Rx Last Taken Unknown] sofosbuvir 400 mg-velpatasvir 100 mg tablet tab 05/31/23 [History Last Taken Unknown] albuterol sulfate 90 mcg/actuation aerosol inhaler (Ventolin HFA) 2 puff inhalation Q4H PRN PRN Wheezing/SOB #1 device 06/01/23 [Rx Last Taken Unknown] ondansetron 4 mg disintegrating tablet 4 mg PO TID PRN nausea and vomiting #21 tabs 06/01/23 [Rx Last Taken Unknown] Allergy/AdvReac Type Severity Reaction Status Date / Time amoxicillin Allergy Hives Verified 05/31/23 22:57 Penicillins [PCN] Allergy Hives Verified 05/31/23 22:57 Social History Smoking Status: Current some day smoker tobacco type: e-cigarettes substance use type: does not use ROS ROS ED Constitutional Constitutional ED: Reports chills and fever(s) ENT ENT ED: Reports rhinorrhea and sore throat Cardiovascular Cardiovascular: Denies chest pain Respiratory/Chest Respiratory/Chest: Reports cough; Denies dyspnea Gastrointestinal Gastrointestinal: Reports diarrhea, nausea and vomiting; Denies abdominal pain Genitourinary Genitourinary ED: Denies dysuria or hematuria Musculoskeletal Musculoskeletal: Reports myalgias Integumentary Denies rash Neurologic Neurologic: Reports headache(s) Psychiatric Psychiatric: Reports anxiety Hematologic/Lymphatic Hematologic/Lymphatic: Denies easy bleeding or easy bruising EXAM Physical Exam Const Vital Signs: 05/31/23 22:53 02/20/24 23:44 05/31/23 23:44 Temperature 96 F L 99.4 F H Temperature Source Temporal Oral Pulse Rate 148 H 110 H 111 H Respiratory Rate 18 19 H Respiratory Effort Respiratory Pattern Blood Pressure 114/92 H 128/76 H 128/76 H Blood Pressure Mean 99 93 93 Pulse Ox 99 98 98 Oxygen Delivery Method Room Air Room Air 05/31/23 23:47 06/01/23 01:19 06/01/23 01:28 Temperature 97.6 F L 99 F Temperature Source Temporal Pulse Rate 103 H 101 H Respiratory Rate 12 19 H Respiratory Effort Normal Respiratory Pattern Normal Blood Pressure 107/71 107/69 Blood Pressure Mean 83 81 Pulse Ox 98 99 Oxygen Delivery Method Room Air Positive well nourished and well developed General Appearance ED: well developed; Negative for pallor HEENT HEENT Narrative: Mucous membranes are slightly dry and tacky No tongue or lip swelling no oral lesions no airway edema or compromise No signs of infection noted in the posterior pharynx Eyes PERRL and EOMs intact bilaterally General Eye ED: Negative for scleral icterus Neck supple Neck Narrative: No nuchal rigidity or meningeal signs noted Chest Wall palpation of chest normal Resp normal respiratory effort and clear to auscultation bilaterally Resp Narrative: No nasal flaring retractions tachypnea or accessory muscle use Cardio regular rhythm Rate: tachycardic and other Other Details: Tachycardic rate with regular rhythm No murmurs rubs or gallop Radial and carotid pulses are equal and symmetric GI non-tender and non-distended GI Narrative: Abdomen is soft nontender and nondistended with hyperactive bowel sounds. No voluntary guarding or rigidity or pulsatile mass Auscultation: hyperactive bowel sounds Palpation: soft Extremity normal to inspection Extremity Narrative: No asymmetric edema no pitting edema negative Homans' sign bilaterally Neuro oriented x3, CN's II-XII intact bilaterally and no sensory deficits noted Sensorium / Orientation: alert Motor Exam: strength 5/5 throughout Psych Psych Narrative: Patient has a nervous/anxious affect Skin no rashes or lesions noted General Skin Exam: Negative for jaundice or pallor MDM MDM MDM Narrative Medical decision making narrative: Patient arrived to the ER tachycardic but otherwise with stable vitals. She was extremely nervous and anxious and was felt that her persistent tachycardia was related to this. With her report of multiple sick contacts at home there was concern for influenza versus COVID versus pneumonia. She denies any recent travel surgery hormone use or history of DVT/PE and as she was more anxiety and did not have chest pain I did not feel need for CTA or D-dimer. Chest x-ray did not reveal any type of lung pathology her flu test is positive consistent with her history and exam as well as exposure and after giving IV hydration and being informed of her diagnosis her heart rate improved as her anxiety lessened. At this time she is not requiring supplemental oxygen she is not in respiratory distress and she has had improvement of symptoms so there is no need for admission and she is otherwise safe for discharge History & Record Review Discussion w/independent historian: Patient Lab Data Attestation: I reviewed the patient's lab results. Labs: Laboratory Results - last 24 hr 05/31/23 23:37 WBC 7.9 RBC 4.49 Hgb 12.8 Hct 38.6 MCV 86.0 MCH 28.5 MCHC 33.2 RDW Std Deviation 39.9 RDW Coeff of Demetria 12.8 Plt Count 129 L MPV 11.2 Immature Gran % (Auto) 0.500 Neut % (Auto) 84.0 H Lymph % (Auto) 3.4 L [place] % (Auto) 12.0 H Eos % (Auto) 0.0 Baso % (Auto) 0.1 Absolute Neuts (auto) 6.7 Absolute Lymphs (auto) 0.27 L Nucleated RBC % 0 Sodium 136 Potassium 3.1 L Chloride 105 Carbon Dioxide 25.0 Anion Gap 6 BUN 8 Creatinine 0.82 Estim Creat Clear Calc 77.90 Est GFR (MDRD) Af Amer 104 Est GFR (MDRD) Non-Af 86 BUN/Creatinine Ratio 9.7 L Glucose 146 H Calcium 8.7 Magnesium 1.6 Radiography Diagnostic Testing: Clinical Impression(s) from Imaging Studies Chest X-Ray 05/31/23 23:37 IMPRESSION: No acute cardiopulmonary disease Electronically Signed: Omar Rose MD at 0:18 EST , Chest x-ray as interpreted by the emergency medicine physician reveals no acute infiltrate pneumothorax or pleural effusion Discharge Plan Triage Chief Complaint: Cold Sx ED Provider: Calixto Prajapati Dx/Rx/DC Orders Clinical Impression: Influenza B, Hepatitis C Instructions: ED Influenza (Adult) Prescriptions: New ondansetron 4 mg tablet,disintegrating 4 mg PO TID PRN (Reason: nausea and vomiting) Qty: 21 0RF albuterol sulfate [Ventolin HFA] 90 mcg/actuation HFA aerosol inhaler 2 puff inhalation Q4H PRN PRN (Reason: Wheezing/SOB) Qty: 1 0RF No Action dextroamphetamine-amphetamine [Adderall] 20 mg tablet 1 tab PO BID Patient Comments: Take 1 Tablet By Oral Route 2 time(s) per day before breakfast hydrocodone-acetaminophen [hydrocodone-acetaminophen] 5-325 mg tablet 1 tab PO Q6H PRN PRN (Reason: Pain) 3 Days Qty: 12 0RF sofosbuvir-velpatasvir 400-100 mg tablet Stand Alone Forms: ED Work / School Excuse Primary Care Provider: Care Physician,No Primary Referrals: Reggie Espinal MD [Med Staff - Active Staff] - Care Physician,No Primary [Primary Care Provider] - Activity Restrictions/Additional Instructions: You tested positive for influenza B which is a viral infection that will last on average 5 to 10 days. Take Tylenol or Motrin for fever and pain control and keep yourself well-hydrated. Use the albuterol inhaler to help with shortness of breath sensation and the Zofran for nausea/vomiting. If you have any further concerns or worsening of symptoms please return for repeat evaluation Disposition Disposition: Home, Self Care Discharge Date/Time: 06/01/23 01:32
[2023-06-01 01:19] VITALS: BP 107/71; PULSE 103; RESP 12; TEMP 36.4; O2SAT 98
[2023-06-01 01:28] VITALS: BP 107/69; PULSE 101; RESP 19; TEMP 37.2; O2SAT 99
== END 2023-06-01 01:32 | disposition home or self-care (01) ==
PROVIDERS: Emergency Provider Emergency Medicine; Visit Provider Emergency Medicine
DX: J10.1 Influenza due to other identified influenza virus with other respiratory manifestations (principal); F17.290 Nicotine dependence, other tobacco product, uncomplicated; F41.9 Anxiety disorder, unspecified; B19.20 Unspecified viral hepatitis C without hepatic coma; R19.7 Diarrhea, unspecified; R51.9 Headache, unspecified
CPT/HCPCS: 71045; 80048; 83735; 85025; 87631; 93005; 96361; 96374; 99282; J7030; A4216; J2405

== ENCOUNTER 2024-06-23 13:32 | Emergency (ER) | payer MEDICAID, SELFPAY ==
[2024-06-23 13:33] VITALS: BP 109/68; PULSE 93; RESP 18; TEMP 36.4; O2SAT 100; BMI 23.4
--- NOTE | 2024-06-23 13:37 | ED.VIS.LOWEX ---
HPI <JUSTINE Reeder - Last Filed: 06/23/24 14:13> History of Present Illness Chief Complaint: Lower Extremity Injury Narrative Narrative: 34-year-old female was going down the stairs and twisted her left foot earlier today and has developed pain and swelling in the foot. She is ambulatory. No weakness or numbness or tingling. PFSH <JUSTINE Reeder - Last Filed: 06/23/24 14:13> PFSH Medical History ADD (attention deficit disorder) Hepatitis C Smoker Home Medications ?Medication ?Instructions ?Recorded ?Last Taken ?Type dextroamphetamine-amphetamine 20 1 tab PO BID 08/21/20 Unknown History mg tablet (Adderall) hydrocodone-acetaminophen 5-325mg 1 tab PO Q6H PRN PRN Pain 3 days 12/13/21 Unknown Rx 5mg-325mg #12 TABLETS sofosbuvir 400 mg-velpatasvir 100 tab 05/31/23 Unknown History mg tablet albuterol sulfate 90 mcg/actuation 2 puff inhalation Q4H PRN PRN 06/01/23 Unknown Rx aerosol inhaler (Ventolin HFA) Wheezing/SOB #1 device ondansetron 4 mg disintegrating 4 mg PO TID PRN nausea and 06/01/23 Unknown Rx tablet vomiting #21 tabs Allergy/AdvReac Type Severity Reaction Status Date / Time amoxicillin Allergy Hives Verified 06/23/24 13:33 Penicillins (PCN) Allergy Hives Verified 06/23/24 13:33 Social History Smoking Status: Current some day smoker tobacco type: e-cigarettes substance use type: does not use ROS <JUSTINE Reeder - Last Filed: 06/23/24 14:13> ROS ED ROS Narrative Neuro: Negative for motor/sensory dysfunction. Skin: Negative for abrasion or wound. Musc: Positive for left foot pain, swelling, trauma. EXAM <JUSTINE Reeder - Last Filed: 06/23/24 14:13> Physical Exam Narrative Exam Narrative: CONST: Patient sitting in no acute distress. EYES: Normal inspection. SKIN: Color normal, no rash, warm, dry, intact. EXTREMITIES: Focal area of swelling, bruising and tenderness left lateral foot over proximal fourth and fifth metatarsals. No deformity or crepitus. No tenderness of the proximal fibula or ankle. Full range of motion, 5/5 strength in dorsiflexion and plantarflexion, normal sensation, 2+ DP pulse. NEURO: Alert and answering questions appropriately. PSYCH: Normal affect. Const Vital Signs: 06/23/24 13:33 06/23/24 14:25 Temperature 97.6 F L 97.6 F L Temperature Source Temporal Pulse Rate 93 93 Respiratory Rate 18 18 Blood Pressure 109/68 109/68 Blood Pressure Mean 81 81 Pulse Ox 100 100 Oxygen Delivery Method Room Air <Josiah Hurtado MD - Last Filed: 06/23/24 16:58> Physical Exam Const Vital Signs: 06/23/24 13:33 06/23/24 14:25 Temperature 97.6 F L 97.6 F L Temperature Source Temporal Pulse Rate 93 93 Respiratory Rate 18 18 Blood Pressure 109/68 109/68 Blood Pressure Mean 81 81 Pulse Ox 100 100 Oxygen Delivery Method Room Air MDM <JUSTINE Reeder - Last Filed: 06/23/24 14:13> [facility] Narrative Medical decision making narrative: Differential includes contusion versus fracture 34-year-old female injured her left foot while going down the stairs. She has a small area of soft tissue swelling, bruising and tenderness along the lateral foot. There is no pain in the ankle. She has full range of motion and is neurovascularly intact. Left foot x-ray is negative. An Jamil wrap was applied to her foot. She does not require crutches. I discussed RICE protocol and [id number] pain reliever use as needed and she was discharged in stable condition. Radiography Diagnostic Testing: Clinical Impression(s) from Imaging Studies Foot X-Ray 06/23/24 13:40 IMPRESSION: Negative for acute fracture or dislocation. No significant arthropathy. Reading Location: [facility] ED attending interpretation of left foot shows no fracture or dislocation. <Josiah Hurtado MD - Last Filed: 06/23/24 16:58> [facility] Radiography Diagnostic Testing: Clinical Impression(s) from Imaging Studies Foot X-Ray 06/23/24 13:40 IMPRESSION: Negative for acute fracture or dislocation. No significant arthropathy. Reading Location: [facility] Treatment and Re-Evaluation Narrative: Dr. Hurtado: I have personally performed a face to face assessment of the patient and have reviewed the STANLEY Note. I performed a substantive portion of the visit including all aspects of the following. My mendez findings include: History is. Walking downstairs wearing crocs that were too large for her. Stepped on left foot laterally. Now with pain and swelling. Exam is GCS 15. ABCs intact. Positive ecchymosis and tenderness with swelling in talofibular fibular ligamentous area. No malleoli or tenderness or crepitance. Medical Decision Making: Check x-rays. X-rays interpreted by myself independently show no evidence of acute fracture of the foot. I reviewed the radiology report which confirms my independent interpretation. [id number] medications for analgesia, ice and elevation. Jamil wrap as needed. Discharge. Other additions or changes: [None] Discharge Plan Triage Chief Complaint: Lower Extremity Injury ED Midlevel Provider: Pauline Kaminski ED Provider: Josiah Hurtado Dx/Rx/DC Orders Clinical Impression: Sprain of foot, left Instructions: ED Foot Sprain Prescriptions: No Action dextroamphetamine-amphetamine [Adderall] 20 mg tablet 1 tab PO BID Patient Comments: Take 1 Tablet By Oral Route 2 time(s) per day before breakfast hydrocodone-acetaminophen [hydrocodone-acetaminophen] 5-325 mg tablet 1 tab PO Q6H PRN PRN (Reason: Pain) 3 Days Qty: 12 0RF sofosbuvir-velpatasvir 400-100 mg tablet ondansetron 4 mg tablet,disintegrating 4 mg PO TID PRN (Reason: nausea and vomiting) Qty: 21 0RF albuterol sulfate [Ventolin HFA] 90 mcg/actuation HFA aerosol inhaler 2 puff inhalation Q4H PRN PRN (Reason: Wheezing/SOB) Qty: 1 0RF Stand Alone Forms: ED Work / School Excuse Primary Care Provider: Care Physician,No Primary Referrals: Care Physician,No Primary [Primary Care Provider] - Activity Restrictions/Additional Instructions: Rest and ice and elevate your foot. Take Tylenol or ibuprofen as needed. You can use the Jamil wrap to compress it to decrease swelling. Print Language: Macanese Disposition Disposition: Home, Self Care Discharge Date/Time: 06/23/24 14:25
--- NOTE | 2024-06-23 13:40 | RAD_ITS ---
PROCEDURE: Left foot radiographs REASON FOR EXAM: Pain TECHNIQUE: Three views of the left foot COMPARISON: None. FINDINGS: See impression RAD/Foot min 3 Views IMPRESSION: Negative for acute fracture or dislocation. No significant arthropathy. Reading Location: [facility]
[2024-06-23 14:25] VITALS: BP 109/68; PULSE 93; RESP 18; TEMP 36.4; O2SAT 100
== END 2024-06-23 14:25 | disposition home or self-care (01) ==
PROVIDERS: Emergency Provider Emergency Medicine; Visit Provider Emergency Medicine
DX: S93.602A Unspecified sprain of left foot, initial encounter (principal); X50.1XXA Overexertion from prolonged static or awkward postures, initial encounter; F17.290 Nicotine dependence, other tobacco product, uncomplicated; F98.8 Other specified behavioral and emotional disorders with onset usually occurring in childhood and adolescence; Z88.0 Allergy status to penicillin; Z86.19 Personal history of other infectious and parasitic diseases; Z79.899 Other long term (current) drug therapy
CPT/HCPCS: 73630; 99282